=== PATIENT | female | born 1960 | race Caucasian/White ===

== ENCOUNTER 2019-12-24 10:01 | Outpatient (REF) | payer BC, SELFPAY ==
[2019-12-24 12:02] LABS: MANUAL DIFF FLAG NO
[2019-12-24 12:10] LABS: Basophils Percent Auto 0.2 % (0-2); Eosinophils Absolute Auto 0.2 X10*3/uL (0.0-0.4); Eosinophils Percent Auto 3.7 % (0-4); Hematocrit 43.1 % (37-47); Hemoglobin 14.2 g/dl (12.0-16.0); Imm Gran Abs Auto 0.02 X10*3/uL (0.00-0.03); Imm Gran Pct Auto 0.4 % (0.0-0.4); Lymphocytes Absolute Auto 1.7 X10*3/uL (1.2-4.9); Lymphocytes Percent Auto 33.5 % (20-40); Mean Corpuscular HGB Conc 32.9 g/dl (31.0-35.0); Mean Corpuscular Hemoglobin 32.9 pg (27.0-33.0); Mean Corpuscular Volume 99.8 fL (80-98); Mean Platelet Volume 10.4 fL (9.4-12.3); Monocytes Absolute Auto 0.6 X10*3/uL (0.1-1.2); Monocytes Percent Auto 10.6 % (2-11); Neutrophils Absolute Auto 2.7 X10*3/uL (2.0-8.3); Neutrophils Percent Auto 51.6 % (45-73); Platelet Count 190 X10*3/uL (160-400); Red Blood Count 4.32 X10*6/uL (4.20-5.50); White Blood Count 5.2 X10*3/uL (4.8-10.8)
[2019-12-24 13:08] LABS: Erythrocyte Sedimentation Rate 10 MM/HR (0-20)
[2019-12-24 13:42] LABS: C Reactive Protein 0.67 mg/dL (< or = 0.50)
== END 2019-12-24 10:02 | disposition home or self-care (01) ==
LOC: HO.LAB 10:01
PROVIDERS: PCP Family Medicine; Visit Provider Student in an Organized Health Care Education/Training Program
DX: L40.50 Arthropathic psoriasis, unspecified (principal); Z79.899 Other long term (current) drug therapy
CPT/HCPCS: 36415; 85025; 85652; 86140

== ENCOUNTER → 2020-01-26 08:02 | Outpatient (BNVA) | payer BC, SELFPAY | PROVIDERS: PCP Family Medicine; Referring Provider Family Medicine; Visit Provider Student in an Organized Health Care Education/Training Program | DX: Z76.89 Persons encountering health services in other specified circumstances (principal) ==

== ENCOUNTER 2020-03-19 10:26 | Outpatient (REF) | payer BC, SELFPAY ==
[2020-03-19 10:52] LABS: MANUAL DIFF FLAG NO
[2020-03-19 10:54] LABS: Basophils Percent Auto 0.2 % (0-2); Eosinophils Absolute Auto 0.3 X10*3/uL (0.0-0.4); Eosinophils Percent Auto 5.3 % (0-4); Hemoglobin 14.4 g/dl (12.0-16.0); Imm Gran Abs Auto 0.01 X10*3/uL (0.00-0.03); Imm Gran Pct Auto 0.2 % (0.0-0.4); Lymphocytes Absolute Auto 1.8 X10*3/uL (1.2-4.9); Mean Corpuscular HGB Conc 32.7 g/dl (31.0-35.0); Mean Corpuscular Hemoglobin 33.3 pg (27.0-33.0); Mean Corpuscular Volume 101.9 fL (80-98); Mean Platelet Volume 9.5 fL (9.4-12.3); Monocytes Absolute Auto 0.4 X10*3/uL (0.1-1.2); Neutrophils Absolute Auto 2.4 X10*3/uL (2.0-8.3); Neutrophils Percent Auto 49.3 % (45-73); Platelet Count 190 X10*3/uL (160-400); Red Blood Count 4.32 X10*6/uL (4.20-5.50); Red Cell Distribution Width 13.5 % (11.0-16.0); White Blood Count 4.9 X10*3/uL (4.8-10.8)
[2020-03-19 11:21] LABS: Alanine Aminotransferase 42 U/L (0-31); Albumin Level 4.1 g/dL (3.5-5.0); Alkaline Phosphatase 73 U/L (39-117); Anion Gap 10 (12-20); Aspartate Amino Transferase 32 U/L (5-31); Bilirubin Total 0.5 mg/dL (0.0-1.0); Blood Urea Nitrogen 10 mg/dL (9-16); Calcium 8.3 mg/dL (8.4-10.2); Carbon Dioxide 28 mmol/L (22-29); Chloride 107 mmol/L (96-108); Estimated Glomerular Filt Rate > 60; Glucose Random 125 mg/dL (60-115); Sodium 141 mmol/L (135-145); Total Protein 7.1 g/dL (6.5-8.0)
[2020-03-19 11:33] LABS: Erythrocyte Sedimentation Rate 7 MM/HR (0-20)
== END 2020-03-19 10:27 | disposition home or self-care (01) ==
LOC: HO.LAB 10:26
PROVIDERS: PCP Family Medicine; Visit Provider Student in an Organized Health Care Education/Training Program
DX: L40.50 Arthropathic psoriasis, unspecified (principal)
CPT/HCPCS: 36415; 80053; 85025; 85652; 86140

== ENCOUNTER 2020-04-26 07:46 | Outpatient (REF) | payer BC, SELFPAY ==
[2020-04-26 08:51] LABS: MANUAL DIFF FLAG NO
[2020-04-26 09:03] LABS: Basophils Percent Auto 0.2 % (0-2); Eosinophils Absolute Auto 0.2 X10*3/uL (0.0-0.4); Eosinophils Percent Auto 3.8 % (0-4); Hematocrit 44.3 % (37-47); Hemoglobin 14.6 g/dl (12.0-16.0); Imm Gran Abs Auto 0.01 X10*3/uL (0.00-0.03); Imm Gran Pct Auto 0.2 % (0.0-0.4); Lymphocytes Absolute Auto 1.5 X10*3/uL (1.2-4.9); Mean Corpuscular Hemoglobin 32.5 pg (27.0-33.0); Mean Corpuscular Volume 98.7 fL (80-98); Mean Platelet Volume 10.1 fL (9.4-12.3); Monocytes Absolute Auto 0.4 X10*3/uL (0.1-1.2); Monocytes Percent Auto 7.8 % (2-11); Neutrophils Absolute Auto 2.8 X10*3/uL (2.0-8.3); Platelet Count 176 X10*3/uL (160-400); Red Blood Count 4.49 X10*6/uL (4.20-5.50)
[2020-04-26 09:25] LABS: Alanine Aminotransferase 25 U/L (0-31); Alkaline Phosphatase 78 U/L (39-117); Anion Gap 10 (12-20); Aspartate Amino Transferase 22 U/L (5-31); Bilirubin Total 0.5 mg/dL (0.0-1.0); Blood Urea Nitrogen 9 mg/dL (9-16); C Reactive Protein 0.77 mg/dL (< or = 0.50); Calcium 8.6 mg/dL (8.4-10.2); Carbon Dioxide 29 mmol/L (22-29); Chloride 106 mmol/L (96-108); Estimated Glomerular Filt Rate > 60; Glucose Random 125 mg/dL (60-115); Potassium 3.6 mmol/L (3.3-5.1); Sodium 141 mmol/L (135-145); Total Protein 7.1 g/dL (6.5-8.0)
[2020-04-26 09:54] LABS: Erythrocyte Sedimentation Rate 7 MM/HR (0-20)
== END 2020-04-26 07:47 | disposition home or self-care (01) ==
LOC: HO.LAB 07:46
PROVIDERS: PCP Family Medicine; Visit Provider Student in an Organized Health Care Education/Training Program
DX: L40.50 Arthropathic psoriasis, unspecified (principal); Z79.899 Other long term (current) drug therapy
CPT/HCPCS: 36415; 80053; 85025; 85652; 86140

== ENCOUNTER 2020-08-18 12:37 | Outpatient (REF) | payer OTHER, SELFPAY ==
[2020-08-18 13:40] LABS: MANUAL DIFF FLAG NO
[2020-08-18 13:47] LABS: Basophils Percent Auto 0.2 % (0-2); Eosinophils Absolute Auto 0.2 X10*3/uL (0.0-0.4); Eosinophils Percent Auto 2.6 % (0-4); Hematocrit 44.5 % (37-47); Hemoglobin 14.7 g/dl (12.0-16.0); Imm Gran Abs Auto 0.02 X10*3/uL (0.00-0.03); Imm Gran Pct Auto 0.3 % (0.0-0.4); Lymphocytes Absolute Auto 1.5 X10*3/uL (1.2-4.9); Lymphocytes Percent Auto 25.3 % (20-40); Mean Corpuscular Hemoglobin 31.7 pg (27.0-33.0); Mean Corpuscular Volume 96.1 fL (80-98); Mean Platelet Volume 10.4 fL (9.4-12.3); Monocytes Absolute Auto 0.5 X10*3/uL (0.1-1.2); Monocytes Percent Auto 8.6 % (2-11); Neutrophils Absolute Auto 3.6 X10*3/uL (2.0-8.3); Platelet Count 172 X10*3/uL (160-400); Red Blood Count 4.63 X10*6/uL (4.20-5.50); Red Cell Distribution Width 13.9 % (11.0-16.0); White Blood Count 5.7 X10*3/uL (4.8-10.8)
[2020-08-18 14:17] LABS: Alanine Aminotransferase 19 U/L (0-31); Alkaline Phosphatase 76 U/L (39-117); Anion Gap 10 (12-20); Aspartate Amino Transferase 24 U/L (5-31); Bilirubin Total 0.5 mg/dL (0.0-1.0); Blood Urea Nitrogen 12 mg/dL (9-16); C Reactive Protein 0.37 mg/dL (< or = 0.50); Calcium 8.9 mg/dL (8.4-10.2); Carbon Dioxide 26 mmol/L (22-29); Chloride 109 mmol/L (96-108); Estimated Glomerular Filt Rate > 60; Glucose Random 92 mg/dL (60-115); Potassium 4.1 mmol/L (3.3-5.1); Sodium 141 mmol/L (135-145); Total Protein 7.3 g/dL (6.5-8.0)
[2020-08-18 14:59] LABS: Erythrocyte Sedimentation Rate 8 MM/HR (0-20)
== END 2020-08-18 12:38 | disposition home or self-care (01) ==
LOC: HO.LAB 12:37
PROVIDERS: PCP Family Medicine; Visit Provider Student in an Organized Health Care Education/Training Program
DX: L40.50 Arthropathic psoriasis, unspecified (principal)
CPT/HCPCS: 36415; 80053; 85025; 85652; 86140

== ENCOUNTER 2020-11-22 13:21 | Outpatient (REF) | payer OTHER, SELFPAY ==
[2020-11-22 14:30] LABS: MANUAL DIFF FLAG NO
[2020-11-22 15:18] LABS: Basophils Percent Auto 0.3 % (0-2); Eosinophils Absolute Auto 0.2 X10*3/uL (0.0-0.4); Eosinophils Percent Auto 2.4 % (0-4); Hematocrit 45.3 % (37-47); Hemoglobin 15.3 g/dl (12.0-16.0); Imm Gran Abs Auto 0.02 X10*3/uL (0.00-0.03); Imm Gran Pct Auto 0.3 % (0.0-0.4); Lymphocytes Absolute Auto 1.7 X10*3/uL (1.2-4.9); Lymphocytes Percent Auto 27.2 % (20-40); Mean Corpuscular HGB Conc 33.8 g/dl (31.0-35.0); Mean Corpuscular Hemoglobin 32.7 pg (27.0-33.0); Mean Corpuscular Volume 96.8 fL (80-98); Mean Platelet Volume 10.7 fL (9.4-12.3); Monocytes Absolute Auto 0.6 X10*3/uL (0.1-1.2); Monocytes Percent Auto 8.8 % (2-11); Neutrophils Absolute Auto 3.8 X10*3/uL (2.0-8.3); Platelet Count 192 X10*3/uL (160-400); Red Blood Count 4.68 X10*6/uL (4.20-5.50); Red Cell Distribution Width 13.7 % (11.0-16.0); White Blood Count 6.2 X10*3/uL (4.8-10.8)
[2020-11-22 15:45] LABS: Alanine Aminotransferase 14 U/L (0-31); Albumin Level 4.2 g/dL (3.5-5.0); Alkaline Phosphatase 82 U/L (39-117); Anion Gap 12 (12-20); Aspartate Amino Transferase 20 U/L (5-31); Bilirubin Total 0.7 mg/dL (0.0-1.0); Blood Urea Nitrogen 10 mg/dL (9-16); C Reactive Protein 0.34 mg/dL (< or = 0.50); Carbon Dioxide 25 mmol/L (22-29); Chloride 109 mmol/L (96-108); Estimated Glomerular Filt Rate > 60; Glucose Random 101 mg/dL (60-115); Potassium 3.7 mmol/L (3.3-5.1); Sodium 142 mmol/L (135-145); Total Protein 7.6 g/dL (6.5-8.0)
[2020-11-22 16:14] LABS: Erythrocyte Sedimentation Rate 7 MM/HR (0-20)
== END 2020-11-22 13:22 | disposition home or self-care (01) ==
LOC: HO.LAB 13:21
PROVIDERS: PCP Family Medicine; Visit Provider Nurse Practitioner Family
DX: L40.50 Arthropathic psoriasis, unspecified (principal); Z79.899 Other long term (current) drug therapy
CPT/HCPCS: 36415; 80053; 85025; 85652; 86140

== ENCOUNTER → 2021-04-27 14:53 | Outpatient (BNVA) | payer OTHER, SELFPAY | PROVIDERS: PCP Family Medicine; Visit Provider Psychiatry & Neurology Neurology ==

== ENCOUNTER 2021-05-16 14:05 | Outpatient (REF) | payer OTHER, SELFPAY ==
[2021-05-16 14:24] LABS: MANUAL DIFF FLAG NO
[2021-05-16 15:00] LABS: Basophils Percent Auto 0.3 % (0-2); Eosinophils Absolute Auto 0.2 X10*3/uL (0.0-0.4); Eosinophils Percent Auto 2.7 % (0-4); Hematocrit 43.5 % (37.0-47.0); Hemoglobin 14.4 g/dl (12.0-16.0); Imm Gran Abs Auto 0.02 X10*3/uL (0.00-0.03); Imm Gran Pct Auto 0.3 % (0.0-0.4); Lymphocytes Absolute Auto 2.2 X10*3/uL (1.2-4.9); Lymphocytes Percent Auto 32.5 % (20-40); Mean Corpuscular HGB Conc 33.1 g/dl (31.0-35.0); Mean Corpuscular Volume 96.7 fL (80.0-98.0); Mean Platelet Volume 10.1 fL (9.4-12.3); Monocytes Absolute Auto 0.6 X10*3/uL (0.1-1.2); Monocytes Percent Auto 8.2 % (2-11); Neutrophils Absolute Auto 3.7 x10*3/uL (2.0-8.3); Platelet Count 172 X10*3/uL (160-400); Red Cell Distribution Width 13.2 % (11.0-16.0); White Blood Count 6.7 X10*3/uL (4.8-10.8)
[2021-05-16 15:19] LABS: Alanine Aminotransferase 17 U/L (0-31); Albumin Level 3.8 g/dL (3.5-5.0); Alkaline Phosphatase 78 U/L (39-117); Anion Gap 10 (12-20); Aspartate Amino Transferase 17 U/L (5-31); Bilirubin Total 0.4 mg/dL (0.0-1.0); Blood Urea Nitrogen 16 mg/dL (9-16); C Reactive Protein 0.23 mg/dL (< or = 0.50); Calcium 8.7 mg/dL (8.4-10.2); Carbon Dioxide 28 mmol/L (22-29); Chloride 106 mmol/L (96-108); Estimated Glomerular Filt Rate > 60; Glucose Random 87 mg/dL (60-115); Potassium 3.8 mmol/L (3.3-5.1); Sodium 140 mmol/L (135-145)
[2021-05-16 15:42] LABS: Erythrocyte Sedimentation Rate 9 MM/HR (0-20)
== END 2021-05-16 14:06 | disposition home or self-care (01) ==
LOC: HO.LAB 14:05
PROVIDERS: PCP Family Medicine; Visit Provider Nurse Practitioner Family
DX: L40.50 Arthropathic psoriasis, unspecified (principal)
CPT/HCPCS: 36415; 80053; 85025; 85652; 86140

== ENCOUNTER 2021-05-22 09:25 | Outpatient (REF) | payer OTHER, SELFPAY ==
--- NOTE | ~2021-05-22 | MR_ITS ---
EXAMINATION: MR BRAIN WITHOUT AND WITH CONTRAST CLINICAL INFORMATION: Headache. Facial pain. COMPARISON: None available. TECHNIQUE: Multiplanar, multisequence MRI of the brain was obtained using a skull base protocol without and following the administration of 10 mL of Gadavist intravenous contrast. FINDINGS: No focal restricted diffusion is demonstrated to suggest acute or subacute cerebral ischemia. Scattered periventricular and deep white matter T2 FLAIR hyperintensities consistent with mild underlying microangiopathy. Proportional prominence of the ventricles and sulcal spaces without evidence of obstructive hydrocephalus. No abnormal mass effect. No midline shift. Normal appearance of the pituitary gland. Normal positioning of the cerebellar tonsils. No mass of the cerebellopontine angles. Normal appearance of the cranial nerve V, VII, and VIII nerve roots. No edema or vascular loops near the nerve root entry sites. Normal appearance of the internal auditory canals without enhancing mass lesions. No abnormal enhancement along the course of the facial nerves bilaterally. Normal appearance of the labyrinthine structures without loss of T2 signal or abnormal enhancement. Normal arterial and venous vascular flow voids are present. No abnormal intracranial contrast enhancement. Normal, homogeneous marrow signal. There is a 1.3 cm nonenhancing cyst within the right palatine tonsils. Moderate mucosal thickening of the paranasal sinuses. Mucous retention cyst within the left maxillary sinus. No signal abnormalities within the mastoids. Upper cervical chain lymph nodes appear mildly increased in number bilaterally but remain subcentimeter in size. MR/MR head/brain wo/w con IMPRESSION: 1. No acute intracranial abnormalities. No abnormal intracranial enhancement. 2. Mild underlying microangiopathy and generalized cerebral volume loss. 3. Nonspecific mildly prominent upper cervical chain lymph nodes, likely reactive in nature.
== END 2021-05-22 09:26 | disposition home or self-care (01) ==
LOC: HO.MRI 09:25
PROVIDERS: PCP Family Medicine; Visit Provider Psychiatry & Neurology Neurology
DX: R51.9 Headache, unspecified (principal); D18.01 Hemangioma of skin and subcutaneous tissue
CPT/HCPCS: 70553; A9585

== ENCOUNTER → 2021-12-04 09:01 | Outpatient (REF) | payer OTHER, SELFPAY | LOC: HO.SL 09:01 | PROVIDERS: PCP Family Medicine; Visit Provider Nurse Practitioner Family | DX: G47.33 Obstructive sleep apnea (adult) (pediatric) (principal); R40.0 Somnolence; R06.83 Snoring | CPT/HCPCS: 95806 ==

== ENCOUNTER → 2022-02-09 15:01 | Outpatient (BNVA) | payer OTHER, SELFPAY | PROVIDERS: PCP Family Medicine; Visit Provider Nurse Practitioner Family | DX: G47.9 Sleep disorder, unspecified (principal); R06.83 Snoring; R40.0 Somnolence ==

== ENCOUNTER → 2022-08-13 15:26 | Outpatient (BNVA) | payer OTHER, SELFPAY | PROVIDERS: PCP Family Medicine; Visit Provider Nurse Practitioner Family | DX: G47.9 Sleep disorder, unspecified (principal); R06.83 Snoring; R40.0 Somnolence ==

== ENCOUNTER 2023-12-11 08:57 | Outpatient (AMB) | payer MEDICARE, SELFPAY ==
--- NOTE | 2023-12-11 09:00 | A.OFFVIS_ITS ---
Vital Signs 12/11/23 09:04 Height 5 ft 6 in Weight 219 lb 2 oz BMI 35.4 BP 110/82 Blood Pressure Location Lt brachial Position Sitting Pulse 78 Pulse Source Pulse Oximeter Pulse Oximetry (%) 97 Oxygen Delivery Method Room Air Intake Visit Reasons: SHAY Outside Laborer Required: No Accompanied by: Spouse Allergies Penicillins Allergy (Mild, Verified 12/11/23 09:01) RASH HPI Comments Details: 63 y/o female patient presents for follow up of SHAY on CPAP. she stopped using CPAP due to facial cellulitis - Oct 2023 - she was treated with antibiotics for 10 days but later developed COVID and malik snot started using CPAP again she sleeps ok . HST in 2021 showed mild degree of sleep apnea- AHI 15 O2 ricardo 83% PFSH Medical History Reddish hemangioma of skin Hypothyroidism Snoring Sleep disorder Right facial pain Psoriasis Psoriatic arthritis Surgical History No history of previous surgery Family History Father No problems noted. Father Heart attack Mother Breast cancer Family/Other COPD (chronic obstructive pulmonary disease) H/O heart bypass surgery Social History Alcohol intake: current Alcohol intake frequency: holidays/special occasions only Patient Tobacco Use Status: Former Tobacco user Tobacco use type: Cigarette Cigarettes Per Day: 10 Years Smoked: 20 e-Cigarette/Vaping Use: Never Used Physical Exam Vital Signs: Last Vital Signs Pulse 78 12/11/23 09:04 BP 110/82 12/11/23 09:04 Pulse Ox 97 12/11/23 09:04 Oxygen Delivery Method Room Air 12/11/23 09:04 BMI result Body Mass Index 35.4 Const General: cooperative, healthy appearing, comfortable and no acute distress Nutritional Appearance: overweight Orientation/consciousness: patient oriented x3 HEENT Other: right eye externally rotated Right facial hemangioma mallampatti grade 4 Head: Yes normocephalic Eyes Pupils: Equal, round and reactive pupils present Neuro General: patient oriented x3, gait normal, tone normal, moves all extremities, no focal motor deficits and CN's II-XI intact bilaterally Cranial nerves: Yes CN's II-XII intact bilaterally, Yes Equal, round and reactive pupils present and Yes Normal facial strength present Cognition (Neuro): normal cognition Motor exam (neuro): 5/5 motor strength present throughout and Normal motor muscle tone present throughout Coordination: [id number] test normal Assessment & Plan Assessment & Plan (1) SHAY (obstructive sleep apnea): Comment: A mild degree of sleep apnea. The AHI was 15/hr and the oxygen ricardo was 82%. Code(s): G47.33 - Obstructive sleep apnea (adult) (pediatric) Category: Medical Plan Continue to use APAP [id number] as patient experiences good clinical effect. [facility] Stressed compliance, use CPAP nightly and more than 4 hours. Clean mask and tube routinely. Will f/u of compliance and therapy response. Wt reduction advised. She is not interested in mandibular device Coding Level of Care Code Est Pt Level 4 (97104) Diagnoses SHAY (obstructive sleep apnea) G47.33
[2023-12-11 09:04] VITALS: BP 110/82; PULSE 78; O2SAT 97; BMI 35.4
== END 2023-12-11 09:18 | disposition home or self-care (01) ==
PROVIDERS: PCP Family Medicine; Visit Provider Psychiatry & Neurology Neurology
DX: G47.33 Obstructive sleep apnea (adult) (pediatric) (principal)
CPT/HCPCS: 99214

== ENCOUNTER → 2023-12-11 08:57 | Outpatient (BNVA) | payer MEDICARE, SELFPAY | PROVIDERS: PCP Family Medicine; Visit Provider Psychiatry & Neurology Neurology | DX: G47.33 Obstructive sleep apnea (adult) (pediatric) (principal) | CPT/HCPCS: 99212 ==

== ENCOUNTER 2024-03-12 08:52 | Outpatient (AMB) | payer MEDICARE, SELFPAY ==
--- NOTE | 2024-03-12 08:55 | A.OFFVIS_ITS ---
Vital Signs 03/12/24 08:56 Height 5 ft 6 in Weight 228 lb BMI 36.8 BP 124/88 Blood Pressure Location Rt brachial Position Sitting Intake Visit Reasons: 3m follow up Trigeminal neuralgia Intake Note: Patient presents for 3 month follow up neuralgia Allergies Penicillins Allergy (Mild, Verified 03/12/24 08:57) RASH HPI Comments Details: 63 y/o female patient presents for follow up of SHAY on CPAP. she stopped using CPAP due to facial cellulitis - Oct 2023 - she was treated with antibiotics for 10 days but later developed COVID and started using in Jan 2024 but had some trouble with her equipment - now has a loaner from [facility] she sleeps ok . HST in 2021 showed mild degree of sleep apnea- AHI 15 O2 ricardo 83% compliance form 12-9 -24-1-- 90%- had cataract surgery 2 days ago and did not use for past 2 days AHI 3 On 5-15 PFSH Medical History Cataract Reddish hemangioma of skin Hypothyroidism Snoring Sleep disorder Right facial pain Psoriasis Psoriatic arthritis Surgical History No history of previous surgery Family History Father No problems noted. Father Heart attack Mother Breast cancer Family/Other COPD (chronic obstructive pulmonary disease) H/O heart bypass surgery Social History Alcohol intake: current Alcohol intake frequency: holidays/special occasions only Patient Tobacco Use Status: Former Tobacco user Tobacco use type: Cigarette Cigarettes Per Day: 10 Years Smoked: 20 e-Cigarette/Vaping Use: Never Used Physical Exam Vital Signs: Last Vital Signs BP 124/88 03/12/24 08:56 BMI result Body Mass Index 36.8 Const General: cooperative, healthy appearing, comfortable and no acute distress Nutritional Appearance: overweight Orientation/consciousness: patient oriented x3 HEENT Other: right eye externally rotated Right facial hemangioma mallampatti grade 4 Head: Yes normocephalic Eyes Pupils: Equal, round and reactive pupils present Neuro General: patient oriented x3, gait normal, tone normal, moves all extremities, no focal motor deficits and CN's II-XI intact bilaterally Cranial nerves: Yes CN's II-XII intact bilaterally, Yes Equal, round and re active pupils present and Yes Normal facial strength present Cognition (Neuro): normal cognition Motor exam (neuro): 5/5 motor strength present throughout and Normal motor muscle tone present throughout Coordination: [id number] test normal Assessment & Plan Assessment & Plan (1) SHAY (obstructive sleep apnea): Comment: A mild degree of sleep apnea. The AHI was 15/hr and the oxygen ricardo was 82%. Code(s): G47.33 - Obstructive sleep apnea (adult) (pediatric) Category: Medical Plan Continue to use APAP [id number] as patient experiences good clinical effect. Stressed compliance, use CPAP nightly and more than 4 hours. Clean mask and tube routinely. Will f/u of compliance and therapy response. Wt reduction advised. She is not interested in mandibular device Coding Level of Care Code Est Pt Level 4 (25252) Diagnoses SHAY (obstructive sleep apnea) G47.33
[2024-03-12 08:56] VITALS: BP 124/88; BMI 36.8
== END 2024-03-12 09:27 | disposition home or self-care (01) ==
PROVIDERS: PCP Family Medicine; Visit Provider Psychiatry & Neurology Neurology
DX: G47.33 Obstructive sleep apnea (adult) (pediatric) (principal)
CPT/HCPCS: 99214

== ENCOUNTER → 2024-03-12 08:52 | Outpatient (BNVA) | payer MEDICARE, SELFPAY | PROVIDERS: PCP Family Medicine; Visit Provider Psychiatry & Neurology Neurology | DX: G47.33 Obstructive sleep apnea (adult) (pediatric) (principal) | CPT/HCPCS: 99212 ==

== ENCOUNTER 2024-06-10 08:55 | Outpatient (AMB) | payer MEDICARE, SELFPAY ==
--- OUTSIDE RECORDS SUMMARY | 2024-06-10 09:34 | XMS_ITS | Clinical Summary ---
Author Organization [facility] Address [address] [place] [address] Care Team Providers Care Core Winder Name Role Phone Jaylen Bar MD Primary Care Provider [phone] Medications No known medications Active Problems No known active problems Social History Tobacco Use Types Packs/Day Years Used Date Smoking Tobacco: Former Cigarettes Smokeless Tobacco: Never Tobacco Cessation:Counseling Given: Not Answered Alcohol Use Standard Drinks/Week Comments Yes 0 (1 standard drink = 0.6 oz pur e alcohol) OCCASIONAL Sex and Gender Information Value Date Recorded Sex Assigned at Female 05/16/2023 5:17 PM EDT Gender Identity Not on file Sexual Orientation Not on file Job Start Date Occupation Industry Not on file Not on file Not on file Last Filed Vital Signs Vital Sign Reading Time Taken Comments Blood Pressure 115/68 07/10/2023 9:47 AM EDT Pulse 72 07/10/2023 9:47 AM EDT Temperature 36.2 ??C (97.2 ??F) 07/10/2023 9:47 AM ED T Respiratory Rate - - Oxygen Saturation 99% 07/10/2023 9:47 AM EDT Inhaled Oxygen Concentration - - Weight 94.8 kg (209 lb) 07/10/2023 9:47 AM EDT Height - - Body Mass Index - - Plan of Treatment Health Maintenance Due Date Last Done Comments Hepatitis C Screening 1958 Depression Screening 1970 Preventative Health Evaluation 1976 DTap / Tdap / Td (1 - Tdap) 1977 Cervical Cancer Screening (Pap Smear) 10/13/1979 Colon Cancer Screening (Colonoscopy) 10/13/2003 Breast Cancer Screening (Mammogram) 2008 Shingrix-Zoster Vaccine (1 of 2) 2008 Fall Risk Assessment 10/13/2023 Osteoporosis Screening (DEXA Scan) 10/13/2023 Pneumococcal Vaccine (1 of 1 - PCV) 10/13/2023 COVID-19 Vaccine (5 - season) 2023 02/04/2023, 12/22/2020, 06/24/2020, Additional history exists Influenza Vaccine (#1) 2023 3, 12/11/2021, 12/06/2020, Additional history exists RSV Adult > 60+ Yrs or (1 - 1-dose 75+ series) 2033 Hepatitis B Vaccines Aged Out No long er eligible based on patient's age to complete this topic Pneumococcal Vaccine Aged Out No long er eligible based on patient's age to complete this topic RSV Ped < 20 months Aged Out No longe r eligible based on patient's age to complete this topic Insurance Payer Benefit Plan / Group Subscriber ID Effective Dates Phone Address [facility] [id number] 2023-Presen t [address] [place] [address] [facility] – [place] Care Teams Core Winder Relationship Specialty Start Date End Date Jaylen Bar MD [address] [place] [address] PCP - General Family Medicine 05/16/23
--- NOTE | 2024-06-10 09:39 | MHC.OFFVIS ---
Vital Signs 06/10/24 09:40 Height 5 ft 6 in Weight 227 lb BMI 36.6 Pulse 66 Pulse Source Pulse Oximeter Pulse Oximetry (%) 96 Oxygen Delivery Method Room Air Intake Visit Reasons: 3 mnts f/u with Shankar per MD Intake Note: Patient presents follow up SHAY. Compliance in chart. Allergies Penicillins Allergy (Mild, Verified 06/10/24 09:42) RASH HPI Comments Details: 63 y/o female presents for follow up of SHAY on CPAP. Her Guerrero helps with history today. HST in 2021 showed mild degree of sleep apnea- AHI 15 O2 ricardo 83% On Oct 2023 she stopped using CPAP due to facial cellulitis, she was treated with antibiotics for 10 days but later developed COVID and started using her machine in Jan 2024. She had some trouble with her equipment, and has a loaner from [facility] she sleeps ok. She has Levlatoid Capillitis, small purpuric spots itchy, yet benign skin condition with Psoriasis, takes Bimzelx 320mg Q4W and Pentoxifylline ER 400mg PO TID, she is followed by the wound clinic for debridement of ulcers in her feet as needed. Feb 2024 had cataract surgery, bilaterally, procedure went well at Dr. Dawn's office in [facility]. She denies headaches. She denied RLS or RBD behavior symptoms. She denies cognitive decline. She used to have a julio machine G33 and it started to discharge chunks of material with battery acid tasting fluid. Now she really likes her new loaner machine gumi Airsense 10. Her diet and mood are stable, she is motivated to lose weight. She likes her machine and uses it daily, with the exception of sick days and recently had covid. She washes her mask and changes her filters, and hoses as needed. [facility] [place] Medical History Cataract Reddish hemangioma of skin Hypothyroidism Snoring Sleep disorder Right facial pain Psoriasis Psoriatic arthritis Surgical History History of cataract surgery No history of previous surgery Family History Father No problems noted. Father Heart attack Mother Breast cancer Family/Other COPD (chronic obstructive pulmonary disease) H/O heart bypass surgery Social History Alcohol intake: current Alcohol intake frequency: holidays/special occasions only Patient Tobacco Use Status: Former Tobacco user Tobacco use type: Cigarette Cigarettes Per Day: 10 Years Smoked: 20 e-Cigarette/Vaping Use: Never Used Physical Exam Vital Signs: Last Vital Signs Pulse 66 06/10/24 09:40 Pulse Ox 96 06/10/24 09:40 Oxygen Delivery Method Room Air 06/10/24 09:40 BMI result Body Mass Index 36.6 Const General: cooperative, healthy appearing, comfortable and no acute distress Nutritional Appearance: overweight Orientation/consciousness: patient oriented x3 HEENT Other: right eye externally rotated Right facial hemangioma mallampatti grade 4 Head: Yes normocephalic Eyes Pupils: Equal, round and reactive pupils present Neuro General: patient oriented x3, gait normal, tone normal, moves all extremities, no focal motor deficits and CN's II-XI intact bilaterally Cranial nerves: Yes CN's II-XII intact bilaterally, Yes Equal, round and reactive pupils present and Yes Normal facial strength present Cognition (Neuro): normal cognition Motor exam (neuro): 5/5 motor strength present throughout and Normal motor muscle tone present throughout Coordination: [id number] test normal Results Reviewed Results Reviewed: SHAY Compliance Data 02/2024 - 05/2024 Total Usage is 79/90 and 88% Avg >4 hrs 6hr 35min APAP [id number] Press 9.5- 13.5cmH20 Leaks 2.6-29.2cmH20 and AHI are 3.4cmH20 Assessment & Plan Assessment & Plan (1) SHAY (obstructive sleep apnea): Comment: A mild degree of sleep apnea. The AHI was 15/hr and the oxygen ricardo was 82%. Code(s): G47.33 - Obstructive sleep apnea (adult) (pediatric) Category: Medical (2) Daytime sleepiness: Code(s): R40.0 - Somnolence Category: Medical (3) Psoriasis: Code(s): L40.9 - Psoriasis, unspecified Category: Medical Plan Continue to use APAP [id number] as patient experiences good clinical effect. Stressed compliance, use CPAP nightly and more than 4 hours. Will f/u with C re: loaner machine, if she needs a new RX for a new supply order we will send the new order for her. Wt reduction advised, continue walking as tolerable. Patient Instructions: Sleep Hygiene provided: set a scheduled bedtime and wake time to help regulate the circadian rhythm and balance the release of pituitary hormones. Sleep in a dark room, temperatures below 68 degrees, and no devices n bed. Limit caffeinated products 6 hours prior to bed, and limit fluids 2-4 hours prior to bed. Gentle night yoga, diffusing essential oils, and playing soft music can be relaxing. Coding Level of Care Code Est Pt Level 4 (16616) Diagnoses SHAY (obstructive sleep apnea) G47.33 Daytime sleepiness R40.0 Psoriasis L40.9 Time Spent (min) 20
[2024-06-10 09:40] VITALS: PULSE 66; O2SAT 96; BMI 36.6
== END 2024-06-10 10:19 | disposition home or self-care (01) ==
LOC: HO.HSMS 08:55
PROVIDERS: PCP Family Medicine; Visit Provider Physician Assistant Medical
DX: G47.33 Obstructive sleep apnea (adult) (pediatric) (principal); R40.0 Somnolence; L40.9 Psoriasis, unspecified
CPT/HCPCS: 99214

== ENCOUNTER → 2024-06-10 08:55 | Outpatient (BNVA) | payer MEDICARE, SELFPAY | PROVIDERS: PCP Family Medicine; Visit Provider Physician Assistant Medical | DX: G47.33 Obstructive sleep apnea (adult) (pediatric) (principal); R40.0 Somnolence; L40.9 Psoriasis, unspecified; Z99.89 Dependence on other enabling machines and devices | CPT/HCPCS: 99212 ==

== ENCOUNTER → 2024-10-12 09:59 | Outpatient (REF) | payer MEDICARE, SELFPAY ==
--- OUTSIDE RECORDS SUMMARY | 2024-10-12 10:58 | XMS_ITS | Patient Health Record ---
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 Name Role Phone Jaylen Bar Primary Care Provider Nohemi Casey Unavailable [phone] Marjan Barrett Unavailable [phone] Maurilio Richards Unavailable [phone] Allergies Allergen (clinical drug ingredient) Drug/Non Drug Allergy documented on EMR Reaction Allergy Type Onset Date Status Penicillin Unknown Drug Allergy Active Reason For Referral No Information Medications Medication SIG (Take, Route, Frequency, Duration) Notes Start Date End Date Status Aspirin Adult Low Dose 81 MG 1 tablet Or ally Once a day; Duration: 30 day(s) Active Pentoxifylline - as directed A ctive Cosentyx 150 MG/ML 1 mL Subcutaneous; Duration: 30 day(s) Active Triamcinolone Acetonide 0.025 % 1 application Externally Once a day 10/09/2023 Active Fluocinonide 0.05 % 1 application Torch Shearer ally Twice a day 10/09/2023 Active Rosuvastatin Calcium 5 MG 1 tablet Orall y Once a day; Duration: 30 day(s) 10/09/2023 Active Desonide 0.05 % 1 application Torch Shearer ally Twice a day 10/09/2023 Active Problems Problem Type SNOMED Code ICD Code Onset Dates Problem Status W/U Status Risk Notes Problem Antiphospholipid syndrome (23037992) Antiphospholipid syndrome (D68.61) Active confirmed Problem Obesity due to excess calories (621171354) Other obesity due to excess calories (E66.09) Active confirmed Problem 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 Problem Chronic ulcer of right foot (disorder) (40485146430797114) Non-pressure chronic ulcer of other part of right foot with unspecified severity (L97.519) Active confirmed Problem Chronic ulcer of lower extremity (92212145) Non-pressure chronic ulcer of other part of right lower leg limited to breakdown of skin (L97.811) Active confirmed Problem Non-pressure chronic ulcer of other part of left lower leg with unspecified severity (L97.829) Active confirmed Problem Unspecified open wound of abdominal wall, right lower quadrant without penetration into peritoneal cavity, subsequent encounter (S31.103D) Active confirmed Problem Dehiscence of surgical wound (67057634) Disruption of external operation (surgical) wound, not elsewhere classified, subsequent encounter (T81.31XD) Active confirmed Problem Encounter for surgical aftercare following surgery on the skin and subcutaneous tissue (Z48.817) Active confirmed Problem Hyperlipidaemia (39438013) Hyperlipidemia, unspecified hyperlipidemia type (E78.5) Active confirmed Problem Anxiety (63270217) Anxiety (F41.9) Active confi rmed Problem Obesity (873360760) Obesity, unspecified classification, unspecified obesity type, unspecified whether serious comorbidity present (E66.9) Active confirmed Problem Aortic valve disorder (2693295) Aortic heart murmur (I35.8) Active confirmed Problem 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 Problem History of otitis media (538783553) H/O otitis media (Z86.69) Active confirmed Problem Rhonda's thyroiditis (41086173) Rhonda's thyroiditis (E06.3) Active confirmed Problem 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 Problem 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 Problem Psoriasis (7795503) Psoriasis (L40.9) Active co nfirmed Problem Cellulitis of left lower leg (98839176372336) Cellulitis of left lower leg (L03.116) Active confirmed Vital Signs Heart Rate 79 /min 06/15/2024 Temperature 97.5 degrees Fahrenheit 06/15/2024 Respiratory Rate 18 /min 06/15/2024 Oximetry 99 % 06/15/2024 Blood pressure diastolic 82 mm Hg 06/15/2024 Weight-kg 99.79 kg 06/15/2024 Height 66 in 06/15/2024 Blood pressure systolic 152 mm Hg 06/15/2024 Weight 220 lbs 06/15/2024 BMI 35.51 kg/m2 06/15/2024 Encounters Encounter Location Date Provider Diagnosis [facility] [address] [facility] [address] [place] [address] 11/11/2023 Marjan Barrett Disruption of external operation (surgical) wound, not elsewhere classified, subsequent encounter T81.31XD ; Livedo vasculitis L95.0 ; Psoriatic arthritis mutilans L40.52 ; Other obesity due to excess calories E66.09 ; Non-pressure chronic ulcer of other part of left lower leg with unspecified severity L97.829 ; Non-pressure chronic ulcer of other part of right foot with unspecified severity L97.519 ; Encounter for surgical aftercare following surgery on the skin and subcutaneous tissue Z48.817 ; Unspecified open wound of abdominal wall, right lower quadrant without penetration into peritoneal cavity, subsequent encounter S31.103D and Non-pressure chronic ulcer of other part of right lower leg limited to breakdown of skin L97.811 [facility] [address] [facility] [address] [place] [address] 12/09/2023 Nohemi Iyer Livedo vasculitis L95.0 ; Disruption of external operation (surgical) wound, not elsewhere classified, subsequent encounter T81.31XD ; Psoriatic arthritis mutilans L40.52 ; Other obesity due to excess calories E66.09 ; Non-pressure chronic ulcer of other part of left lower leg with unspecified severity L97.829 ; Non-pressure chronic ulcer of other part of right foot with unspecified severity L97.519 ; Encounter for surgical aftercare following surgery on the skin and subcutaneous tissue Z48.817 ; Unspecified open wound of abdominal wall, right lower quadrant without penetration into peritoneal cavity, subsequent encounter S31.103D ; Non-pressure chronic ulcer of other part of right lower leg limited to breakdown of skin L97.811 and Cellulitis of left lower leg L03.116 [facility] [address] [facility] [facility] [address] [place] [address] 12/16/2023 Nohemi Morgan Livedo vasculitis L95.0 ; Disruption of external operation (surgical) wound, not elsewhere classified, subsequent encounter T81.31XD ; Psoriatic arthritis mutilans L40.52 ; Other obesity due to excess calories E66.09 ; Non-pressure chronic ulcer of other part of left lower leg with unspecified severity L97.829 ; Non-pressure chronic ulcer of other part of right foot with unspecified severity L97.519 ; Encounter for surgical aftercare following surgery on the skin and subcutaneous tissue Z48.817 ; Unspecified open wound of abdominal wall, right lower quadrant without penetration into peritoneal cavity, subsequent encounter S31.103D ; Non-pressure chronic ulcer of other part of right lower leg limited to breakdown of skin L97.811 and Cellulitis of left lower leg L03.[address] [address] 12/23/2023 Nohemineela Smithett Livedo vasculitis L95.0 ; Disruption of external operation (surgical) wound, not elsewhere classified, subsequent encounter T81.31XD ; Psoriatic arthritis mutilans L40.52 ; Other obesity due to excess calories E66.09 ; Non-pressure chronic ulcer of other part of left lower leg with unspecified severity L97.829 ; Non-pressure chronic ulcer of other part of right foot with unspecified severity L97.519 ; Encounter for surgical aftercare following surgery on the skin and subcutaneous tissue Z48.817 ; Unspecified open wound of abdominal wall, right lower quadrant without penetration into peritoneal cavity, subsequent encounter S31.103D ; Non-pressure chronic ulcer of other part of right lower leg limited to breakdown of skin L97.811 and Cellulitis of left lower leg L03.116 [facility] [address] [address] 12/30/2023 Nohemi Iyer 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 ; Psoriasis L40.9 ; Psoriatic arthritis mutilans L40.52 ; Non-pressure chronic ulcer of other part of left lower leg with unspecified severity L97.829 ; Non-pressure chronic ulcer of other part of right foot with unspecified severity L97.519 ; Non-pressure chronic ulcer of other part of right lower leg limited to breakdown of skin L97.811 ; Disruption of external operation (surgical) wound, not elsewhere classified, subsequent encounter T81.31XD ; Encounter for surgical aftercare following surgery on the skin and subcutaneous tissue Z48.817 ; Unspecified open wound of abdominal wall, right lower quadrant without penetration into peritoneal cavity, subsequent encounter S31.103D and Cellulitis of left lower leg L03.116 [facility] [address] [facility] [facility] [address] [place] [address] 01/06/2024 Nohemi Iyer 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 ; Psoriasis L40.9 ; Psoriatic arthritis mutilans L40.52 ; Non-pressure chronic ulcer of other part of left lower leg with unspecified severity L97.829 ; Non-pressure chronic ulcer of other part of right foot with unspecified severity L97.519 ; Non-pressure chronic ulcer of other part of right lower leg limited to breakdown of skin L97.811 ; Disruption of external operation (surgical) wound, not elsewhere classified, subsequent encounter T81.31XD ; Encounter for surgical aftercare following surgery on the skin and subcutaneous tissue Z48.817 ; Unspecified open wound of abdominal wall, right lower quadrant without penetration into peritoneal cavity, subsequent encounter S31.103D and Cellulitis of left lower leg L03.116 [facility] [address] [address] 01/13/2024 Nohemi Iyer 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 ; Psoriasis L40.9 ; Psoriatic arthritis mutilans L40.52 ; Non-pressure chronic ulcer of other part of left lower leg with unspecified severity L97.829 ; Non-pressure chronic ulcer of other part of right foot with unspecified severity L97.519 ; Non-pressure chronic ulcer of other part of right lower leg limited to breakdown of skin L97.811 ; Disruption of external operation (surgical) wound, not elsewhere classified, subsequent encounter T81.31XD ; Encounter for surgical aftercare following surgery on the skin and subcutaneous tissue Z48.817 ; Unspecified open wound of abdominal wall, right lower quadrant without penetration into peritoneal cavity, subsequent encounter S31.103D and Cellulitis of left lower leg L03.116 [facility] [address] [facility] [address] [place] [address] 01/20/2024 Nohemineela Iyer 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 ; Psoriasis L40.9 ; Psoriatic arthritis mutilans L40.52 ; Non-pressure chronic ulcer of other part of left lower leg with unspecified severity L97.829 ; Non-pressure chronic ulcer of other part of right foot with unspecified severity L97.519 ; Non-pressure chronic ulcer of other part of right lower leg limited to breakdown of skin L97.811 ; Disruption of external operation (surgical) wound, not elsewhere classified, subsequent encounter T81.31XD ; Encounter for surgical aftercare following surgery on the skin and subcutaneous tissue Z48.817 ; Unspecified open wound of abdominal wall, right lower quadrant without penetration into peritoneal cavity, subsequent encounter S31.103D and Cellulitis of left lower leg L03.116 [facility] [address] [facility] [address] [place] [address] 01/27/2024 Nohemi Iyer 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 ; Psoriasis L40.9 ; Psoriatic arthritis mutilans L40.52 ; Non-pressure chronic ulcer of other part of left lower leg with unspecified severity L97.829 ; Non-pressure chronic ulcer of other part of right foot with unspecified severity L97.519 ; Non-pressure chronic ulcer of other part of right lower leg limited to breakdown of skin L97.811 ; Disruption of external operation (surgical) wound, not elsewhere classified, subsequent encounter T81.31XD ; Encounter for surgical aftercare following surgery on the skin and subcutaneous tissue Z48.817 and Unspecified open wound of abdominal wall, right lower quadrant without penetration into peritoneal cavity, subsequent encounter S31.103D [facility] [address] [address] 02/03/2024 Nohemi Iyer 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 ; Psoriasis L40.9 ; Psoriatic arthritis mutilans L40.52 ; Non-pressure chronic ulcer of other part of left lower leg with unspecified severity L97.829 ; Non-pressure chronic ulcer of other part of right foot with unspecified severity L97.519 ; Non-pressure chronic ulcer of other part of right lower leg limited to breakdown of skin L97.811 ; Disruption of external operation (surgical) wound, not elsewhere classified, subsequent encounter T81.31XD ; Encounter for surgical aftercare following surgery on the skin and subcutaneous tissue Z48.817 and Unspecified open wound of abdominal wall, right lower quadrant without penetration into peritoneal cavity, subsequent encounter S31.103D [address] [address] 02/10/2024 Nohemi Iyer 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 ; Psoriasis L40.9 ; Psoriatic arthritis mutilans L40.52 ; Non-pressure chronic ulcer of other part of left lower leg with unspecified severity L97.829 ; Non-pressure chronic ulcer of other part of right foot with unspecified severity L97.519 ; Non-pressure chronic ulcer of other part of right lower leg limited to breakdown of skin L97.811 ; Disruption of external operation (surgical) wound, not elsewhere classified, subsequent encounter T81.31XD ; Encounter for surgical aftercare following surgery on the skin and subcutaneous tissue Z48.817 and Unspecified open wound of abdominal wall, right lower quadrant without penetration into peritoneal cavity, subsequent encounter S31.103D [address] [address] 02/17/2024 Jooyun Richrads 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 ; Psoriasis L40.9 ; Psoriatic arthritis mutilans L40.52 ; Non-pressure chronic ulcer of other part of left lower leg with unspecified severity L97.829 ; Non-pressure chronic ulcer of other part of right foot with unspecified severity L97.519 ; Non-pressure chronic ulcer of other part of right lower leg limited to breakdown of skin L97.811 ; Disruption of external operation (surgical) wound, not elsewhere classified, subsequent encounter T81.31XD ; Encounter for surgical aftercare following surgery on the skin and subcutaneous tissue Z48.817 and Unspecified open wound of abdominal wall, right lower quadrant without penetration into peritoneal cavity, subsequent encounter S31.103D [facility] [address] [address] 02/24/2024 Nohemi Iyer 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 ; Psoriasis L40.9 ; Psoriatic arthritis mutilans L40.52 ; Non-pressure chronic ulcer of other part of left lower leg with unspecified severity L97.829 ; Non-pressure chronic ulcer of other part of right foot with unspecified severity L97.519 ; Non-pressure chronic ulcer of other part of right lower leg limited to breakdown of skin L97.811 ; Disruption of external operation (surgical) wound, not elsewhere classified, subsequent encounter T81.31XD ; Encounter for surgical aftercare following surgery on the skin and subcutaneous tissue Z48.817 and Unspecified open wound of abdominal wall, right lower quadrant without penetration into peritoneal cavity, subsequent encounter S31.103D [facility] [address] [address] 03/02/2024 Nohemi Iyer 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 ; Psoriasis L40.9 ; Psoriatic arthritis mutilans L40.52 ; Non-pressure chronic ulcer of other part of left lower leg with unspecified severity L97.829 ; Non-pressure chronic ulcer of other part of right foot with unspecified severity L97.519 ; Non-pressure chronic ulcer of other part of right lower leg limited to breakdown of skin L97.811 ; Disruption of external operation (surgical) wound, not elsewhere classified, subsequent encounter T81.31XD ; Encounter for surgical aftercare following surgery on the skin and subcutaneous tissue Z48.817 and Unspecified open wound of abdominal wall, right lower quadrant without penetration into peritoneal cavity, subsequent encounter S31.103D [place] [address] 03/16/2024 Nohemi Iyer 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 ; Psoriasis L40.9 ; Psoriatic arthritis mutilans L40.52 ; Non-pressure chronic ulcer of other part of left lower leg with unspecified severity L97.829 ; Non-pressure chronic ulcer of other part of right foot with unspecified severity L97.519 ; Non-pressure chronic ulcer of other part of right lower leg limited to breakdown of skin L97.811 ; Disruption of external operation (surgical) wound, not elsewhere classified, subsequent encounter T81.31XD ; Encounter for surgical aftercare following surgery on the skin and subcutaneous tissue Z48.817 and Unspecified open wound of abdominal wall, right lower quadrant without penetration into peritoneal cavity, subsequent encounter S31.103D [facility] [address] [address] 03/23/2024 Nohemi Iyer 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 ; Psoriasis L40.9 ; Psoriatic arthritis mutilans L40.52 ; Non-pressure chronic ulcer of other part of left lower leg with unspecified severity L97.829 ; Non-pressure chronic ulcer of other part of right foot with unspecified severity L97.519 ; Non-pressure chronic ulcer of other part of right lower leg limited to breakdown of skin L97.811 ; Disruption of external operation (surgical) wound, not elsewhere classified, subsequent encounter T81.31XD ; Encounter for surgical aftercare following surgery on the skin and subcutaneous tissue Z48.817 and Unspecified open wound of abdominal wall, right lower quadrant without penetration into peritoneal cavity, subsequent encounter S31.103D [facility] [address] [address] 03/30/2024 Nohemi Iyer 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 ; Psoriasis L40.9 ; Psoriatic arthritis mutilans L40.52 ; Non-pressure chronic ulcer of other part of left lower leg with unspecified severity L97.829 ; Non-pressure chronic ulcer of other part of right foot with unspecified severity L97.519 ; Non-pressure chronic ulcer of other part of right lower leg limited to breakdown of skin L97.811 ; Disruption of external operation (surgical) wound, not elsewhere classified, subsequent encounter T81.31XD ; Encounter for surgical aftercare following surgery on the skin and subcutaneous tissue Z48.817 and Unspecified open wound of abdominal wall, right lower quadrant without penetration into peritoneal cavity, subsequent encounter S31.103D [facility] [address] [address] 04/06/2024 Nohemi Iyer 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 ; Psoriasis L40.9 ; Psoriatic arthritis mutilans L40.52 ; Non-pressure chronic ulcer of other part of left lower leg with unspecified severity L97.829 ; Non-pressure chronic ulcer of other part of right foot with unspecified severity L97.519 ; Non-pressure chronic ulcer of other part of right lower leg limited to breakdown of skin L97.811 ; Disruption of external operation (surgical) wound, not elsewhere classified, subsequent encounter T81.31XD ; Encounter for surgical aftercare following surgery on the skin and subcutaneous tissue Z48.817 and Unspecified open wound of abdominal wall, right lower quadrant without penetration into peritoneal cavity, subsequent encounter S31.103D [facility] [address] [address] 04/13/2024 Nohemi Iyer 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 ; Psoriasis L40.9 ; Psoriatic arthritis mutilans L40.52 ; Non-pressure chronic ulcer of other part of left lower leg with unspecified severity L97.829 ; Non-pressure chronic ulcer of other part of right foot with unspecified severity L97.519 ; Non-pressure chronic ulcer of other part of right lower leg limited to breakdown of skin L97.811 ; Disruption of external operation (surgical) wound, not elsewhere classified, subsequent encounter T81.31XD ; Encounter for surgical aftercare following surgery on the skin and subcutaneous tissue Z48.817 and Unspecified open wound of abdominal wall, right lower quadrant without penetration into peritoneal cavity, subsequent encounter S31.103D [facility] [address] [address] 04/20/2024 Nohemi Iyer 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 ; Psoriasis L40.9 ; Psoriatic arthritis mutilans L40.52 ; Non-pressure chronic ulcer of other part of left lower leg with unspecified severity L97.829 ; Non-pressure chronic ulcer of other part of right foot with unspecified severity L97.519 ; Non-pressure chronic ulcer of other part of right lower leg limited to breakdown of skin L97.811 ; Disruption of external operation (surgical) wound, not elsewhere classified, subsequent encounter T81.31XD ; Encounter for surgical aftercare following surgery on the skin and subcutaneous tissue Z48.817 and Unspecified open wound of abdominal wall, right lower quadrant without penetration into peritoneal cavity, subsequent encounter S31.103D [facility] [address] [address] 04/27/2024 Nohemineela Smithett 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 ; Psoriasis L40.9 ; Psoriatic arthritis mutilans L40.52 ; Non-pressure chronic ulcer of other part of left lower leg with unspecified severity L97.829 ; Non-pressure chronic ulcer of other part of right foot with unspecified severity L97.519 ; Non-pressure chronic ulcer of other part of right lower leg limited to breakdown of skin L97.811 ; Disruption of external operation (surgical) wound, not elsewhere classified, subsequent encounter T81.31XD ; Encounter for surgical aftercare following surgery on the skin and subcutaneous tissue Z48.817 and Unspecified open wound of abdominal wall, right lower quadrant without penetration into peritoneal cavity, subsequent encounter S31.103D [facility] [address] 05/04/2024 Nohemineela Smithett 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 ; Psoriasis L40.9 ; Psoriatic arthritis mutilans L40.52 ; Non-pressure chronic ulcer of other part of left lower leg with unspecified severity L97.829 ; Non-pressure chronic ulcer of other part of right foot with unspecified severity L97.519 ; Non-pressure chronic ulcer of other part of right lower leg limited to breakdown of skin L97.811 and Encounter for surgical aftercare following surgery on the skin and subcutaneous tissue Z48.817 [facility] [address] 05/11/2024 Nohemineela Iyer 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 ; Psoriasis L40.9 ; Psoriatic arthritis mutilans L40.52 ; Non-pressure chronic ulcer of other part of left lower leg with unspecified severity L97.829 ; Non-pressure chronic ulcer of other part of right foot with unspecified severity L97.519 and Encounter for surgical aftercare following surgery on the skin and subcutaneous tissue Z48.817 [facility] [address] 05/18/2024 Nohemineela Iyer 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 ; Psoriasis L40.9 ; Psoriatic arthritis mutilans L40.52 ; Non-pressure chronic ulcer of other part of left lower leg with unspecified severity L97.829 ; Non-pressure chronic ulcer of other part of right foot with unspecified severity L97.519 and Encounter for surgical aftercare following surgery on the skin and subcutaneous tissue Z48.817 [facility] [address] 05/27/2024 Nohemineela Smithett 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 ; Psoriasis L40.9 ; Psoriatic arthritis mutilans L40.52 ; Non-pressure chronic ulcer of other part of left lower leg with unspecified severity L97.829 and Non-pressure chronic ulcer of other part of right foot with unspecified severity L97.519 [facility] [address] [address] 06/10/2024 Nohemi Iyer 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 ; Psoriasis L40.9 ; Psoriatic arthritis mutilans L40.52 ; Non-pressure chronic ulcer of other part of left lower leg with unspecified severity L97.829 and Non-pressure chronic ulcer of other part of right foot with unspecified severity L97.519 [facility] [address] [address] 06/15/2024 Nohemi Iyer 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 ; Psoriasis L40.9 ; Psoriatic arthritis mutilans L40.52 ; Non-pressure chronic ulcer of other part of left lower leg with unspecified severity L97.829 and Non-pressure chronic ulcer of other part of right foot with unspecified severity L97.519 [facility] [address] [address] 12/09/2023 Marjan Barrett [address] [address] 02/03/2024 Marjan Barrett Assessments Encounter Date Diagnosis (ICD Code) Assessment Notes Treatment Notes Treatment Clinical Notes Section Notes 11/11/2023 Disruption of external operation (surgical) wound, not elsewhere classified, subsequent encounter (ICD-10 - T81.31XD) 11/11/2023 Livedo vasculitis (ICD-10 - L95.0) 12/09/2023 Disruption of external operation (surgical) wound, not elsewhere classified, subsequent encounter (ICD-10 - T81.31XD) 12/09/2023 Livedo vasculitis (ICD-10 - L95.0) 12/16/2023 Livedo vasculitis (ICD-10 - L95.0) 12/23/2023 Livedo vasculitis (ICD-10 - L95.0) 12/30/2023 Livedoid vasculopathy (ICD-10 - L95.0) 12/30/2023 Psoriasis (ICD-10 - L40.9) 01/06/2024 Livedoid vasculopathy (ICD-10 - L95.0) 01/13/2024 Livedoid vasculopathy (ICD-10 - L95.0) 01/20/2024 Livedoid vasculopathy (ICD-10 - L95.0) 01/27/2024 Livedoid vasculopathy (ICD-10 - L95.0) 01/27/2024 Psoriasis (ICD-10 - L40.9) 02/03/2024 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 Overall her wounds are improving. Her RLE has eschar, adherent without drainage. LLE is improving and has epithelial islands after debridement, slow improvement continues. R lateral foot is measuring smaller today and has fewer pinpoint open areas; debridement performed as detailed above. Abdominal wounds are both primairly epithelial with small adherent scabbed areas, RLQ scab lifting and removed, underlying tissue CDI and wound is resolved. There were no findings to indicate any acute underlying infectious processes to any of her wound sites; I performed debridement as detailed to her LLE and R lateral foot to remove lifting deitalized tissue and the other wounds are nicely clean with epithelial and granular tissue and did not require debridement. I cleaned the wounds with wound cleanser and nursing applied triamcinolone mixed w cerave to the periwounds f/b adaptic fb aquacel ag to LLE and R lateral foot f.b DCD, left RLE and applied cerave mixed with triamcinolone to wounds on abdomen, leaving LEAD MINER BLASTING. Lastly tubigrip was applied toes to below her knees with instructions to apply in AM and remove @ HS. I recommended she and her perform dressing changes Saturday and Saturday with CeraVe mixed with triamcinolone to periwound of her LLE wound and R lateral foot wound, adaptic fb aquacel ag (do not substitute) fb DCDs, tubi rat culturist on in AM and off @ HS. Leave RLE SHEKHAR. Cerave mixed w triamcinolone to abdomen leaving SHEKHAR, applying BID. Elevation discussed and recommended. She will continue to follow hematology and dermatology and her surgeon for her abdominal wounds did not feel she needed a surgical follow-up. She will return for a follow-up in one week to monitor her progress, calling with any questions or concerns prior. Patient, and nursing agree w plan of care. I Nohemi Iyer MSN, [facility]- examined, evaluated and treated the patient. Dr. Elizabeth Yoder was available for any question or concerns that I may have had. 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 Overall her wounds are improving. Her RLE has eschar, adherent without drainage. LLE is improving and has epithelial islands after debridement, slow improvement continues. R lateral foot is measuring smaller today and has fewer pinpoint open areas; debridement performed as detailed above. Abdominal wounds are both resolved. There were no findings to indicate any acute underlying infectious processes to any of her wound sites; I performed debridement as detailed to her LLE and R lateral foot to remove lifting deitalized tissue and the other wounds are nicely clean with epithelial and granular tissue and did not require debridement. I cleaned the wounds with wound cleanser and nursing applied triamcinolone mixed w cerave to the periwounds f/b adaptic fb aquacel ag to LLE and R lateral foot f.b DCD. Lastly tubigrip was applied toes to below her knees with instructions to apply in AM and remove @ HS. I recommended she and her perform dressing changes Saturday and Saturday with CeraVe mixed with triamcinolone to periwound of her LLE wound and R lateral foot wound, adaptic fb aquacel ag (do not substitute) fb DCDs, tubi rat culturist on in AM and off @ HS. Leave RLE SHEKHAR. Elevation discussed and recommended. She will continue to follow hematology and dermatology and her surgeon for her abdominal wounds did not feel she needed a surgical follow-up. She will return for a follow-up in one week to monitor her progress, calling with any questions or concerns prior. Patient, and nursing agree w plan of care. I Nohemi Iyer MSN, [facility] examined, evaluated and treated the patient. Dr. Elizabeth Yoder was available for any question or concerns that I may have had. 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 Overall her wounds are improving. Her RLE has eschar, adherent without drainage. LLE is stable and has epithelial islands after debridement, slow improvement continues. R lateral foot is also stable today; debridement performed as detailed above. Abdominal wounds both remain resolved. There were no findings to indicate any acute underlying infectious processes to any of her wound sites; I performed debridement as detailed to her LLE and R lateral foot to remove lifting deitalized tissue and the other wounds are nicely clean with epithelial and granular tissue and did not require debridement. I cleaned the wounds with wound cleanser and nursing applied triamcinolone mixed w cerave to the periwounds f/b adaptic fb aquacel ag to LLE and R lateral foot f.b DCD. Lastly tubigrip was applied toes to below her knees with instructions to apply in AM and remove @ HS. I recommended she and her perform dressing changes Saturday and Saturday with CeraVe mixed with triamcinolone to periwound of her LLE wound and R lateral foot wound, adaptic fb aquacel ag (do not substitute) fb DCDs, tubi rat culturist on in AM and off @ HS. Follow derm recs for anterior RLE, and apply above adaptic and aquacel ag dressing if the wound opens. Elevation discussed and recommended. She will continue to follow hematology and dermatology and her surgeon for her abdominal wounds did not feel she needed a surgical follow-up. She will return for a follow-up in one week to monitor her progress, calling with any questions or concerns prior. Patient, and nursing agree w plan of care. I Nohemi ROACH, [facility]- examined, evaluated and treated the patient. Dr. Elizabeth Yoder was available for any question or concerns that I may have had. 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 Overall her wounds are improving. Her RLE has lifting eschar, performed selective debridement and underlying tissue is fragile epithelial. LLE contineus to slolwy improve, epithelial islands growing and granular tissue reducting. R lateral foot is also improved today; debridement performed as detailed above. LUQ abdominal wound has a fluctuant scab; I performed debridement to remove the lifting scab and there is a granular wound underlying with a small area of undermining. There were no findings to indicate any acute underlying infectious processes to any of her wound sites. I cleaned the wounds with wound cleanser and nursing applied triamcinolone mixed w cerave to the periwounds f/b adaptic fb aquacel ag to LLE and R lateral foot f.b DCD and triamcinolone and cerave to periwound of LUQ abdominal wound, adaptic fb bandaid. Lastly tubigrip was applied toes to below her knees with instructions to apply in AM and remove @ HS. I recommended she and her perform dressing changes Saturday and Saturday with CeraVe mixed with triamcinolone to periwound of her LLE wound and R lateral foot wound, adaptic fb aquacel ag (do not substitute) fb DCDs, tubi rat culturist on in AM and off @ HS. triamcinolone and cerave to periwound of LUQ abdominal wound, adaptic fb bandaid. Follow derm recs for anterior RLE, and apply above adaptic and aquacel ag dressing if the wound opens. Elevation discussed and recommended. She will continue to follow hematology and dermatology and her surgeon for her abdominal wounds did not feel she needed a surgical follow-up. She will return for a follow-up in one week to monitor her progress, calling with any questions or concerns prior. Patient, and nursing agree w plan of care. I Nohemi Iyer MSN, [facility]- examined, evaluated and treated the patient. Dr. Elizabeth Yoder was available for any question or concerns that I may have had. 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 Overall her wounds are improving. Her RLE is nicely resolved with epithelial tissue. LLE continues to slolwy improve, epithelial islands growing and granular tissue reducting. R lateral foot is also improved today; debridement performed as detailed above. LUQ abdominal wound has an adherent scab without drainage that was left SHEKHAR. There were no findings to indicate any acute underlying infectious processes to any of her wound sites. I cleaned the wounds with wound cleanser and nursing applied triamcinolone mixed w cerave to the periwounds f/b adaptic fb aquacel ag to LLE and R lateral foot f.b DCD. Lastly tubigrip was applied toes to below her knees with instructions to apply in AM and remove @ HS. I recommended she and her perform dressing changes Saturday and Saturday with CeraVe mixed with triamcinolone to periwound of her LLE wound and R lateral foot wound, adaptic fb aquacel ag (do not substitute) fb DCDs, tubi rat culturist on in AM and off @ HS. Leave LUQ abdominal wound LEAD MINER BLASTING, may cover w bandaid if needed/if rubbing up on clothing and causing discomfort. DC tx to RLE and leave LEAD MINER BLASTING as the wound is nicely resolved. Elevation discussed and recommended. She will continue to follow hematology and dermatology and her surgeon for her abdominal wounds did not feel she needed a surgical follow-up. She will return for a follow-up in one week to monitor her progress, calling with any questions or concerns prior. Patient, and nursing agree w plan of care. I Nohemi Iyer MSN, [facility]- examined, evaluated and treated the patient. Dr. Elizabeth Yoder was available for any question or concerns that I may have had. 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 Overall her wounds are improving. Her LLE is nicely resolved with epithelial tissue. R lateral foot is also improved today; debridement performed as detailed above, scant drainage remaining. LUQ abdominal wound is nicely resolved. There were no findings to indicate any acute underlying infectious processes to any of her wound sites. I cleaned the wound to her R lateral foot with wound cleanser and nursing applied triamcinolone mixed w cerave to the periwound f/b adaptic fb aquacel ag R lateral foot f.b DCD and the cream mixture to her intact skin on her LLE. Lastly tubigrip was applied toes to below her knees with instructions to apply in AM and remove @ HS. I recommended she and her perform dressing changes Saturday and Saturday with CeraVe mixed with triamcinolone to periwound of her R lateral foot wound, adaptic fb aquacel ag (do not substitute) fb DCDs, tubi rat culturist on in AM and off @ HS. Leave LUQ abdominal wound SHEKHAR and LLE, apply cerave mixed with triamcinolone to intact skin. Elevation discussed and recommended. She will continue to follow hematology and dermatology and her surgeon for her abdominal wounds did not feel she needed a surgical follow-up. She will return for a follow-up in one week to monitor her progress, calling with any questions or concerns prior. Patient, and nursing agree w plan of care. I Nohemi Iyer MSN, [facility]- examined, evaluated and treated the patient. Dr. Elizabeth Yoder was available for any question or concerns that I may have had. 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 Overall her wounds are improving. Her LLE remains resolved with intact but fragile epithelial tissue. R lateral foot is stable but still has a cluster of 2 open pinpoint clustered areas with drainage; debridement performed as detailed above, scant drainage remaining. LUQ abdominal wound remains nicely resolved. There were no findings to indicate any acute underlying infectious processes to any of her wound sites. I cleaned the wound to her R lateral foot with wound cleanser and nursing applied triamcinolone mixed w cerave to the periwound f/b puracol to her R lateral foot f.b DCD and the cream mixture to her intact skin on her LLE. Lastly tubigrip was applied toes to below her knees with instructions to apply in AM and remove @ HS. I recommended she and her perform dressing changes on only with CeraVe mixed with triamcinolone to periwound of her R lateral foot wound, puracol fb DCD, tubi rat culturist on in AM and off @ HS. Leave LUQ abdominal wound LEAD MINER BLASTING and LLE, apply cerave mixed with triamcinolone to intact skin. Elevation discussed and recommended. She will continue to follow hematology and dermatology. She will return for a follow-up in one week to monitor her progress, calling with any questions or concerns prior. Patient, and nursing agree w plan of care. I Nohemi Iyer MSN, [facility]- examined, evaluated and treated the patient. Dr. Elizabeth Yoder was available for any question or concerns that I may have had. 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 Overall her wounds are improving. Her LLE remains resolved with intact but fragile epithelial tissue. R lateral foot is stable but still has a cluster of 2 open pinpoint clustered areas with drainage; debridement performed as detailed above, scant drainage remaining; the wound does appear more superficial today and has more epithelial tissue. her LLE has a cluster of areas of eschar; I performed debridement as detailed to remove devitalized and fibrous tissue and one open area remains. There were no findings to indicate any acute underlying infectious processes to any of her wound sites. I cleaned the wounds to her R lateral foot and LLE with wound cleanser and nursing applied triamcinolone mixed w cerave to the periwounds f/b puracol and DCDs. Lastly tubigrip was applied toes to below her knees with instructions to apply in AM and remove @ HS. I recommended she and her perform dressing changes on only with CeraVe mixed with triamcinolone to periwound of her R lateral foot and LLE wound, puracol fb DCD, tubi rat culturist on in AM and off @ HS. Leave LUQ abdominal wound LEAD MINER BLASTING, apply cerave mixed with triamcinolone to intact skin. Elevation discussed and recommended. She will continue to follow hematology and dermatology. She will return for a follow-up in one week to monitor her progress, calling with any questions or concerns prior. Patient, and nursing agree w plan of care. I Nohemi Iyer MSN, [facility]- examined, evaluated and treated the patient. Dr. Elizabeth Yoder was available for any question or concerns that I may have had. 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 Overall her wounds are improving. Her LLE is slightly improved with a small granular area exposed after debridement. R lateral foot is stable but still has a cluster of 2 open pinpoint clustered areas with drainage from 1; debridement performed as detailed above, scant drainage remaining; the wound does appear more superficial today and has more epithelial tissue. her LLE has a cluster of areas of eschar; I performed debridement as detailed to remove devitalized and fibrous tissue and one open area remains. There were no findings to indicate any acute underlying infectious processes to any of her wound sites. I cleaned the wounds to her R lateral foot and LLE with wound cleanser and nursing applied triamcinolone mixed w cerave to the periwounds f/b puracol and DCDs. Lastly tubigrip was applied toes to below her knees with instructions to apply in AM and remove @ HS. I recommended she and her perform dressing changes on only with CeraVe mixed with triamcinolone to periwound of her R lateral foot and LLE wound, puracol fb DCD, tubi rat culturist on in AM and off @ HS. Leave LUQ abdominal wound SHEKHAR, apply cerave mixed with triamcinolone to intact skin. Elevation discussed and recommended. She will continue to follow hematology and dermatology. She will return for a follow-up in about one week to monitor her progress, calling with any questions or concerns prior. Patient, and nursing agree w plan of care. I Nohemi Iyer MSN, [facility]- examined, evaluated and treated the patient. Dr. Elizabeth Yoder was available for any question or concerns that I may have had. 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 Overall her wounds are improving. Her LLE is nicely resolved with epithelial tissue and a pinpoint adherent scab without fluctuance, erythema or drainage. R lateral foot is improving and has 1 open area remaining; debridement performed as detailed above, scant drainage remaining; the wound does appear more superficial today and has clean granular tissue after debridement. There were no findings to indicate any acute underlying infectious processes to any of her wound sites. I cleaned the wound to her R lateral foot with wound cleanser and nursing applied triamcinolone mixed w cerave to the periwound f/b puracol and DCD to R lateral foot and SP and left LLE LEAD MINER BLASTING. Lastly tubigrip was applied toes to below her knees with instructions to apply in AM and remove @ HS. I recommended she and her perform dressing changes on two to three times weekly with CeraVe mixed with triamcinolone to periwound of her R lateral foot and skin prep, SHEKHAR to LLE wound QOD. Slipper socks vs slippers recommended to prevent friction and shearing to R lateral foot wound which may be causing increased irriration or pain. Elevation discussed and recommended. She will continue to follow hematology and dermatology. She will return for a follow-up in about two weeks per her request to monitor her progress, calling with any questions or concerns prior. Patient, and nursing agree w plan of care. I Nohemi Iyer MSN, [facility]- examined, evaluated and treated the patient. Dr. Elizabeth Yoder was available for any question or concerns that I may have had. 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 Overall her wounds are improving. Her LLE has a cluster of 2 scabs that were easily removed and undelying tissue remains fragile epithelial. R lateral foot is stable; she reports persistent drainage from the wound site but it is dry on exam today; even with selective debridement I do not reach depth or drainage. There were no findings to indicate any acute underlying infectious processes to any of her wound sites. I cleaned the wounds to her R lateral foot and LLE with wound cleanser and nursing applied skin prep and left SHEKHAR. Lastly tubigrip was applied toes to below her knees with instructions to apply in AM and remove @ HS. I recommended she and her perform dressing changes QD to BID with skin prep, leaving SHEKHAR to her R lateral foot and LLE. Slipper socks vs slippers recommended to prevent friction and shearing to R lateral foot wound which may be causing increased irriration or pain. Elevation discussed and recommended. She will continue to follow hematology and dermatology. She will return for a follow-up in about one week to monitor her progress, calling with any questions or concerns prior. Patient, and nursing agree w plan of care. I Nohemi Iyer MSN, [facility]- examined, evaluated and treated the patient. Dr. Elizabeth Yoder was available for any question or concerns that I may have had. 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 Overall her wounds are improving. Her LLE has a cluster of 2 scabs that were easily removed and underlying tissue remains fragile epithelial. R lateral foot is stable with 2 adherent scabs, not lifting. There were no findings to indicate any acute underlying infectious processes to any of her wound sites. I cleaned the wounds to her R lateral foot and LLE with wound cleanser and applied skin prep and left LEAD MINER BLASTING. Lastly Tubigrip was applied toes to below her knees with instructions to apply in AM and remove @ HS. I recommended she utilize her tubi rat culturist when ambulating longer or prolonged periods or in heat. Elevation discussed and recommended. She will continue to follow hematology and dermatology. She does not require a follow-up at this time but will call with new or reopened areas. Patient, and nursing agree w plan of care. I Nohemi Iyer MSN, [facility]- examined, evaluated and treated the patient. Dr. Elizabeth Yoder was available for any question or concerns that I may have had. 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) 04/20/2024 Psoriasis (ICD-10 - L40.9) 04/13/2024 Psoriasis (ICD-10 - L40.9) 04/06/2024 Psoriasis (ICD-10 - L40.9) 03/30/2024 Psoriasis (ICD-10 - L40.9) 03/23/2024 Psoriasis (ICD-10 - L40.9) 03/16/2024 Psoriasis (ICD-10 - L40.9) 03/02/2024 Psoriasis (ICD-10 - L40.9) 02/24/2024 Psoriasis (ICD-10 - L40.9) 02/17/2024 Psoriasis (ICD-10 - L40.9) 02/10/2024 Psoriasis (ICD-10 - L40.9) 02/03/2024 Psoriasis (ICD-10 - L40.9) 01/20/2024 Psoriasis (ICD-10 - L40.9) 01/27/2024 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) 01/13/2024 Psoriasis (ICD-10 - L40.9) 01/06/2024 Psoriasis (ICD-10 - L40.9) 12/30/2023 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) 12/23/2023 Disruption of external operation (surgical) wound, not elsewhere classified, subsequent encounter (ICD-10 - T81.31XD) 12/16/2023 Disruption of external operation (surgical) wound, not elsewhere classified, subsequent encounter (ICD-10 - T81.31XD) 12/09/2023 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) 11/11/2023 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) 12/09/2023 Other obesity due to excess calories (ICD-10 - E66.09) 11/11/2023 Other obesity due to excess calories (ICD-10 - E66.09) 12/16/2023 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) 12/23/2023 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) 12/30/2023 Non-pressure chronic ulcer of other part of left lower leg with unspecified severity (ICD-10 - L97.829) 01/06/2024 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) 01/13/2024 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) 01/20/2024 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) 01/27/2024 Non-pressure chronic ulcer of other part of left lower leg with unspecified severity (ICD-10 - L97.829) 02/03/2024 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) 02/10/2024 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) 02/17/2024 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) 02/24/2024 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) 03/02/2024 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) 03/16/2024 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) 03/23/2024 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) 03/30/2024 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) 04/06/2024 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) 04/13/2024 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) 04/20/2024 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) 04/27/2024 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) 05/27/2024 Non-pressure chronic ulcer of other part of left lower leg with unspecified severity (ICD-10 - L97.829) 05/18/2024 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) 05/04/2024 Non-pressure chronic ulcer of other part of left lower leg with unspecified severity (ICD-10 - L97.829) 05/11/2024 Non-pressure chronic ulcer of other part of left lower leg with unspecified severity (ICD-10 - L97.829) 06/15/2024 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) 06/10/2024 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) 06/10/2024 Non-pressure chronic ulcer of other part of left lower leg with unspecified severity (ICD-10 - L97.829) 06/15/2024 Non-pressure chronic ulcer of other part of left lower leg with unspecified severity (ICD-10 - L97.829) 12/23/2023 Other obesity due to excess calories (ICD-10 - E66.09) 05/18/2024 Non-pressure chronic ulcer of other part of left lower leg with unspecified severity (ICD-10 - L97.829) 05/27/2024 Non-pressure chronic ulcer of other part of right foot with unspecified severity (ICD-10 - L97.519) 04/27/2024 Non-pressure chronic ulcer of other part of left lower leg with unspecified severity (ICD-10 - L97.829) 05/04/2024 Non-pressure chronic ulcer of other part of right foot with unspecified severity (ICD-10 - L97.519) 05/11/2024 Non-pressure chronic ulcer of other part of right foot with unspecified severity (ICD-10 - L97.519) 04/20/2024 Non-pressure chronic ulcer of other part of left lower leg with unspecified severity (ICD-10 - L97.829) 04/13/2024 Non-pressure chronic ulcer of other part of left lower leg with unspecified severity (ICD-10 - L97.829) 04/06/2024 Non-pressure chronic ulcer of other part of left lower leg with unspecified severity (ICD-10 - L97.829) 03/30/2024 Non-pressure chronic ulcer of other part of left lower leg with unspecified severity (ICD-10 - L97.829) 03/23/2024 Non-pressure chronic ulcer of other part of left lower leg with unspecified severity (ICD-10 - L97.829) 03/16/2024 Non-pressure chronic ulcer of other part of left lower leg with unspecified severity (ICD-10 - L97.829) 03/02/2024 Non-pressure chronic ulcer of other part of left lower leg with unspecified severity (ICD-10 - L97.829) 02/24/2024 Non-pressure chronic ulcer of other part of left lower leg with unspecified severity (ICD-10 - L97.829) 02/17/2024 Non-pressure chronic ulcer of other part of left lower leg with unspecified severity (ICD-10 - L97.829) 02/10/2024 Non-pressure chronic ulcer of other part of left lower leg with unspecified severity (ICD-10 - L97.829) 02/03/2024 Non-pressure chronic ulcer of other part of left lower leg with unspecified severity (ICD-10 - L97.829) 01/27/2024 Non-pressure chronic ulcer of other part of right foot with unspecified severity (ICD-10 - L97.519) 01/20/2024 Non-pressure chronic ulcer of other part of left lower leg with unspecified severity (ICD-10 - L97.829) 01/13/2024 Non-pressure chronic ulcer of other part of left lower leg with unspecified severity (ICD-10 - L97.829) 01/06/2024 Non-pressure chronic ulcer of other part of left lower leg with unspecified severity (ICD-10 - L97.829) 12/30/2023 Non-pressure chronic ulcer of other part of right foot with unspecified severity (ICD-10 - L97.519) 12/16/2023 Other obesity due to excess calories (ICD-10 - E66.09) 11/11/2023 Non-pressure chronic ulcer of other part of left lower leg with unspecified severity (ICD-10 - L97.829) 12/09/2023 Non-pressure chronic ulcer of other part of left lower leg with unspecified severity (ICD-10 - L97.829) 12/09/2023 Non-pressure chronic ulcer of other part of right foot with unspecified severity (ICD-10 - L97.519) 11/11/2023 Non-pressure chronic ulcer of other part of right foot with unspecified severity (ICD-10 - L97.519) 12/16/2023 Non-pressure chronic ulcer of other part of left lower leg with unspecified severity (ICD-10 - L97.829) 12/23/2023 Non-pressure chronic ulcer of other part of left lower leg with unspecified severity (ICD-10 - L97.829) 12/30/2023 Non-pressure chronic ulcer of other part of right lower leg limited to breakdown of skin (ICD-10 - L97.811) 01/06/2024 Non-pressure chronic ulcer of other part of right foot with unspecified severity (ICD-10 - L97.519) 01/13/2024 Non-pressure chronic ulcer of other part of right foot with unspecified severity (ICD-10 - L97.519) 01/20/2024 Non-pressure chronic ulcer of other part of right foot with unspecified severity (ICD-10 - L97.519) 01/27/2024 Non-pressure chronic ulcer of other part of right lower leg limited to breakdown of skin (ICD-10 - L97.811) 02/03/2024 Non-pressure chronic ulcer of other part of right foot with unspecified severity (ICD-10 - L97.519) 02/10/2024 Non-pressure chronic ulcer of other part of right foot with unspecified severity (ICD-10 - L97.519) 02/17/2024 Non-pressure chronic ulcer of other part of right foot with unspecified severity (ICD-10 - L97.519) 02/24/2024 Non-pressure chronic ulcer of other part of right foot with unspecified severity (ICD-10 - L97.519) 03/02/2024 Non-pressure chronic ulcer of other part of right foot with unspecified severity (ICD-10 - L97.519) 03/16/2024 Non-pressure chronic ulcer of other part of right foot with unspecified severity (ICD-10 - L97.519) 03/23/2024 Non-pressure chronic ulcer of other part of right foot with unspecified severity (ICD-10 - L97.519) 03/30/2024 Non-pressure chronic ulcer of other part of right foot with unspecified severity (ICD-10 - L97.519) 04/06/2024 Non-pressure chronic ulcer of other part of right foot with unspecified severity (ICD-10 - L97.519) 04/13/2024 Non-pressure chronic ulcer of other part of right foot with unspecified severity (ICD-10 - L97.519) 04/20/2024 Non-pressure chronic ulcer of other part of right foot with unspecified severity (ICD-10 - L97.519) 05/04/2024 Non-pressure chronic ulcer of other part of right lower leg limited to breakdown of skin (ICD-10 - L97.811) 04/27/2024 Non-pressure chronic ulcer of other part of right foot with unspecified severity (ICD-10 - L97.519) 05/11/2024 Encounter for surgical aftercare following surgery on the skin and subcutaneous tissue (ICD-10 - Z48.817) 05/18/2024 Non-pressure chronic ulcer of other part of right foot with unspecified severity (ICD-10 - L97.519) 06/10/2024 Non-pressure chronic ulcer of other part of right foot with unspecified severity (ICD-10 - L97.519) 06/15/2024 Non-pressure chronic ulcer of other part of right foot with unspecified severity (ICD-10 - L97.519) 05/04/2024 Encounter for surgical aftercare following surgery on the skin and subcutaneous tissue (ICD-10 - Z48.817) 05/18/2024 Encounter for surgical aftercare following surgery on the skin and subcutaneous tissue (ICD-10 - Z48.817) 04/27/2024 Non-pressure chronic ulcer of other part of right lower leg limited to breakdown of skin (ICD-10 - L97.811) 04/20/2024 Non-pressure chronic ulcer of other part of right lower leg limited to breakdown of skin (ICD-10 - L97.811) 04/13/2024 Non-pressure chronic ulcer of other part of right lower leg limited to breakdown of skin (ICD-10 - L97.811) 04/06/2024 Non-pressure chronic ulcer of other part of right lower leg limited to breakdown of skin (ICD-10 - L97.811) 03/30/2024 Non-pressure chronic ulcer of other part of right lower leg limited to breakdown of skin (ICD-10 - L97.811) 03/23/2024 Non-pressure chronic ulcer of other part of right lower leg limited to breakdown of skin (ICD-10 - L97.811) 03/16/2024 Non-pressure chronic ulcer of other part of right lower leg limited to breakdown of skin (ICD-10 - L97.811) 03/02/2024 Non-pressure chronic ulcer of other part of right lower leg limited to breakdown of skin (ICD-10 - L97.811) 02/24/2024 Non-pressure chronic ulcer of other part of right lower leg limited to breakdown of skin (ICD-10 - L97.811) 02/17/2024 Non-pressure chronic ulcer of other part of right lower leg limited to breakdown of skin (ICD-10 - L97.811) 02/10/2024 Non-pressure chronic ulcer of other part of right lower leg limited to breakdown of skin (ICD-10 - L97.811) 02/03/2024 Non-pressure chronic ulcer of other part of right lower leg limited to breakdown of skin (ICD-10 - L97.811) 01/27/2024 Disruption of external operation (surgical) wound, not elsewhere classified, subsequent encounter (ICD-10 - T81.31XD) 01/20/2024 Non-pressure chronic ulcer of other part of right lower leg limited to breakdown of skin (ICD-10 - L97.811) 01/13/2024 Non-pressure chronic ulcer of other part of right lower leg limited to breakdown of skin (ICD-10 - L97.811) 01/06/2024 Non-pressure chronic ulcer of other part of right lower leg limited to breakdown of skin (ICD-10 - L97.811) 12/30/2023 Disruption of external operation (surgical) wound, not elsewhere classified, subsequent encounter (ICD-10 - T81.31XD) 12/23/2023 Non-pressure chronic ulcer of other part of right foot with unspecified severity (ICD-10 - L97.519) 12/16/2023 Non-pressure chronic ulcer of other part of right foot with unspecified severity (ICD-10 - L97.519) 11/11/2023 Encounter for surgical aftercare following surgery on the skin and subcutaneous tissue (ICD-10 - Z48.817) 12/09/2023 Encounter for surgical aftercare following surgery on the skin and subcutaneous tissue (ICD-10 - Z48.817) 12/09/2023 Unspecified open wound of abdominal wall, right lower quadrant without penetration into peritoneal cavity, subsequent encounter (ICD-10 - S31.103D) 11/11/2023 Unspecified open wound of abdominal wall, right lower quadrant without penetration into peritoneal cavity, subsequent encounter (ICD-10 - S31.103D) 12/16/2023 Encounter for surgical aftercare following surgery on the skin and subcutaneous tissue (ICD-10 - Z48.817) 12/23/2023 Encounter for surgical aftercare following surgery on the skin and subcutaneous tissue (ICD-10 - Z48.817) 12/30/2023 Encounter for surgical aftercare following surgery on the skin and subcutaneous tissue (ICD-10 - Z48.817) 01/06/2024 Disruption of external operation (surgical) wound, not elsewhere classified, subsequent encounter (ICD-10 - T81.31XD) 01/13/2024 Disruption of external operation (surgical) wound, not elsewhere classified, subsequent encounter (ICD-10 - T81.31XD) 01/20/2024 Disruption of external operation (surgical) wound, not elsewhere classified, subsequent encounter (ICD-10 - T81.31XD) 01/27/2024 Encounter for surgical aftercare following surgery on the skin and subcutaneous tissue (ICD-10 - Z48.817) 02/03/2024 Disruption of external operation (surgical) wound, not elsewhere classified, subsequent encounter (ICD-10 - T81.31XD) 02/10/2024 Disruption of external operation (surgical) wound, not elsewhere classified, subsequent encounter (ICD-10 - T81.31XD) 02/17/2024 Disruption of external operation (surgical) wound, not elsewhere classified, subsequent encounter (ICD-10 - T81.31XD) 02/24/2024 Disruption of external operation (surgical) wound, not elsewhere classified, subsequent encounter (ICD-10 - T81.31XD) 03/02/2024 Disruption of external operation (surgical) wound, not elsewhere classified, subsequent encounter (ICD-10 - T81.31XD) 03/16/2024 Disruption of external operation (surgical) wound, not elsewhere classified, subsequent encounter (ICD-10 - T81.31XD) 03/23/2024 Disruption of external operation (surgical) wound, not elsewhere classified, subsequent encounter (ICD-10 - T81.31XD) 03/30/2024 Disruption of external operation (surgical) wound, not elsewhere classified, subsequent encounter (ICD-10 - T81.31XD) 04/06/2024 Disruption of external operation (surgical) wound, not elsewhere classified, subsequent encounter (ICD-10 - T81.31XD) 04/13/2024 Disruption of external operation (surgical) wound, not elsewhere classified, subsequent encounter (ICD-10 - T81.31XD) 04/20/2024 Disruption of external operation (surgical) wound, not elsewhere classified, subsequent encounter (ICD-10 - T81.31XD) 04/27/2024 Disruption of external operation (surgical) wound, not elsewhere classified, subsequent encounter (ICD-10 - T81.31XD) 04/27/2024 Encounter for surgical aftercare following surgery on the skin and subcutaneous tissue (ICD-10 - Z48.817) 04/20/2024 Encounter for surgical aftercare following surgery on the skin and subcutaneous tissue (ICD-10 - Z48.817) 04/13/2024 Encounter for surgical aftercare following surgery on the skin and subcutaneous tissue (ICD-10 - Z48.817) 04/06/2024 Encounter for surgical aftercare following surgery on the skin and subcutaneous tissue (ICD-10 - Z48.817) 03/30/2024 Encounter for surgical aftercare following surgery on the skin and subcutaneous tissue (ICD-10 - Z48.817) 03/23/2024 Encounter for surgical aftercare following surgery on the skin and subcutaneous tissue (ICD-10 - Z48.817) 03/16/2024 Encounter for surgical aftercare following surgery on the skin and subcutaneous tissue (ICD-10 - Z48.817) 03/02/2024 Encounter for surgical aftercare following surgery on the skin and subcutaneous tissue (ICD-10 - Z48.817) 02/24/2024 Encounter for surgical aftercare following surgery on the skin and subcutaneous tissue (ICD-10 - Z48.817) 02/17/2024 Encounter for surgical aftercare following surgery on the skin and subcutaneous tissue (ICD-10 - Z48.817) 02/10/2024 Encounter for surgical aftercare following surgery on the skin and subcutaneous tissue (ICD-10 - Z48.817) 02/03/2024 Encounter for surgical aftercare following surgery on the skin and subcutaneous tissue (ICD-10 - Z48.817) 01/27/2024 Unspecified open wound of abdominal wall, right lower quadrant without penetration into peritoneal cavity, subsequent encounter (ICD-10 - S31.103D) 01/20/2024 Encounter for surgical aftercare following surgery on the skin and subcutaneous tissue (ICD-10 - Z48.817) 01/13/2024 Encounter for surgical aftercare following surgery on the skin and subcutaneous tissue (ICD-10 - Z48.817) 01/06/2024 Encounter for surgical aftercare following surgery on the skin and subcutaneous tissue (ICD-10 - Z48.817) 12/30/2023 Unspecified open wound of abdominal wall, right lower quadrant without penetration into peritoneal cavity, subsequent encounter (ICD-10 - S31.103D) 12/23/2023 Unspecified open wound of abdominal wall, right lower quadrant without penetration into peritoneal cavity, subsequent encounter (ICD-10 - S31.103D) 12/16/2023 Unspecified open wound of abdominal wall, right lower quadrant without penetration into peritoneal cavity, subsequent encounter (ICD-10 - S31.103D) 11/11/2023 Non-pressure chronic ulcer of other part of right lower leg limited to breakdown of skin (ICD-10 - L97.811) 12/09/2023 Non-pressure chronic ulcer of other part of right lower leg limited to breakdown of skin (ICD-10 - L97.811) 12/09/2023 Cellulitis of left lower leg (ICD-10 - L03.116) 12/16/2023 Non-pressure chronic ulcer of other part of right lower leg limited to breakdown of skin (ICD-10 - L97.811) 12/23/2023 Non-pressure chronic ulcer of other part of right lower leg limited to breakdown of skin (ICD-10 - L97.811) 01/06/2024 Unspecified open wound of abdominal wall, right lower quadrant without penetration into peritoneal cavity, subsequent encounter (ICD-10 - S31.103D) 12/30/2023 Cellulitis of left lower leg (ICD-10 - L03.116) 01/13/2024 Unspecified open wound of abdominal wall, right lower quadrant without penetration into peritoneal cavity, subsequent encounter (ICD-10 - S31.103D) 01/20/2024 Unspecified open wound of abdominal wall, right lower quadrant without penetration into peritoneal cavity, subsequent encounter (ICD-10 - S31.103D) 02/03/2024 Unspecified open wound of abdominal wall, right lower quadrant without penetration into peritoneal cavity, subsequent encounter (ICD-10 - S31.103D) 02/10/2024 Unspecified open wound of abdominal wall, right lower quadrant without penetration into peritoneal cavity, subsequent encounter (ICD-10 - S31.103D) 02/17/2024 Unspecified open wound of abdominal wall, right lower quadrant without penetration into peritoneal cavity, subsequent encounter (ICD-10 - S31.103D) 02/24/2024 Unspecified open wound of abdominal wall, right lower quadrant without penetration into peritoneal cavity, subsequent encounter (ICD-10 - S31.103D) 03/02/2024 Unspecified open wound of abdominal wall, right lower quadrant without penetration into peritoneal cavity, subsequent encounter (ICD-10 - S31.103D) 03/16/2024 Unspecified open wound of abdominal wall, right lower quadrant without penetration into peritoneal cavity, subsequent encounter (ICD-10 - S31.103D) 03/23/2024 Unspecified open wound of abdominal wall, right lower quadrant without penetration into peritoneal cavity, subsequent encounter (ICD-10 - S31.103D) 03/30/2024 Unspecified open wound of abdominal wall, right lower quadrant without penetration into peritoneal cavity, subsequent encounter (ICD-10 - S31.103D) 04/06/2024 Unspecified open wound of abdominal wall, right lower quadrant without penetration into peritoneal cavity, subsequent encounter (ICD-10 - S31.103D) 04/13/2024 Unspecified open wound of abdominal wall, right lower quadrant without penetration into peritoneal cavity, subsequent encounter (ICD-10 - S31.103D) 04/20/2024 Unspecified open wound of abdominal wall, right lower quadrant without penetration into peritoneal cavity, subsequent encounter (ICD-10 - S31.103D) 04/27/2024 Unspecified open wound of abdominal wall, right lower quadrant without penetration into peritoneal cavity, subsequent encounter (ICD-10 - S31.103D) 01/20/2024 Cellulitis of left lower leg (ICD-10 - L03.116) 01/13/2024 Cellulitis of left lower leg (ICD-10 - L03.116) 01/06/2024 Cellulitis of left lower leg (ICD-10 - L03.116) 12/23/2023 Cellulitis of left lower leg (ICD-10 - L03.116) 12/16/2023 Cellulitis of left lower leg (ICD-10 - L03.116) 11/11/2023 Mansi Guevara presents today for a follow up visit. She is doing well. Her wounds are stable, no signs of infectious process. On exam, vital signs stable, afebrile, non-ill appearing. I first examined the wounds on the abdomin. Wound bed has slough and devitalized tissue, there is epibole present. There is no purulence, no odor. I discussed the indication for debridement and chemical cautery and she was agreeable. I performed debridement of the ulcers as outlined and used silver nitrate to cauterize the epibole. I cleaned the wounds with saline and HFB was applied tot he wound bed, zinc to periwound secured with dsd. I than examined bilateral lower legs. She has pinpoint open wounds on BLE, dry scaly skin, no signs of infection. Triamcinolone was applied by nursing. She tolerated the procedure well. Paola will continue with current treatment. She will apply HFB to abdominal wounds every other day. Continue with Triamcinolone to the legs wounds daily. She will use compression stockings during waking hours and encouraged her to elevate her legs. Advised to refrain from swimming on vacation. Discussed signs of infection and when to report. She will return in 1 month for a follow up visit. I spent 25 minutes of direct and indirect care of this patient reviewing records, gathering H&P, evaluation, formulating plan, education and documentation IMarjan [employer]- examined, evaluated and treated the patient. Dr. Elizabeth Yoder was available for any question or concerns that I may have had. 12/09/2023 Other On exam, alert, cooperative with care. Overall her wounds are in various stages of the healing process. Her abdominal wounds appear improved with more epithelial tissue and less undermining. Her LLE appears acutely infected with periwound erythema, wound is larger today. BLE wounds have significant xerosis to the periwounds, some wound boarders are irregular and undefined. I performed gentle debridement to remove biofilm and xerosis to the wounds and surrounding tissue, and she tolerated the procedures well after applications of lidocaine. Anterior RLE wound is intact, appears potentially fluid filled. Skin prep was applied. I cleaned the wounds with wound cleanser and nursing applied Lac-Hydrin to the periwounds of her wounds and to the wounds on her BLE's and transfer ready HFB to the open ulcers on her abdomen and BLE's; she has been using fabric Band-Aids for her abdominal wounds which she reports is working well. Lastly tubi F were applied toes to below her knees on in AM and off @ HS. I recommended she and her perform dressing changes MWF with Lac-Hydrin to periwounds of her BLE's, R foot, triamcinolone to periwounds of LUQ and RLQ abdominal wounds; transfer ready HFB to the open wounds on abdomen fb DCDs, tubi rat culturist on in AM and off @ HS. Skin prep daily to anterior RLE wound site. I wrote her a Rx for 5 days of cephalexin with a plan to culture the LLE wound next week if not improved (declined doxycycline as it is rough on her GI tract). I also wrote for ammonium lactate to the periwounds of her BLE's in hopes this will help with xerosis. Discussed if periwounds are worse upon removal of dressings on Saturday, try a thin layer of Vaseline vs continuing ammonium lactate. We discussed a potential clotrimazole/beta methasone combo to her abdominal periwounds next week if periwounds are not improved with Band-Aids use. Elevation discussed and recommended. She will continue to follow hematology and dermatology and her surgeon for her abdominal wounds did not feel she needed a surgical follow-up. She will return for a follow-up in about one week when we will monitor her progress, calling with any questions or concerns prior. Patient, and nursing agree w plan of care. I Nohemi Iyer MSN, [facility]- examined, evaluated and treated the patient. Dr. Elizabeth Yoder was available for any question or concerns that I may have had. 12/16/2023 Other On exam, alert, cooperative with care. Overall her wounds are in various stages of the healing process but overall are improving. Her abdominal wounds appear improved with more epithelial tissue and less undermining. Her LLE wound no longer appears infected as she has completed the keflex. I performed gentle debridement to remove biofilm and xerosis to the wounds and surrounding tissue, and she tolerated the procedures well after applications of lidocaine. Anterior RLE wound is reopened but clean with granular tissue. I cleaned the wounds with wound cleanser and nursing applied Lac-Hydrin to the periwounds of her wounds and to the wounds on her BLE's and transfer ready HFB to the open ulcers on her abdomen and BLE's; she has been using fabric Band-Aids for her abdominal wounds which she reports is working well. Lastly tubi F were applied toes to below her knees on in AM and off @ HS. I recommended she and her perform dressing changes MWF with Lac-Hydrin to periwounds of her BLE's, R foot, triamcinolone to periwounds of LUQ and RLQ abdominal wounds; transfer ready HFB to the open wounds on abdomen fb DCDs, tubi rat culturist on in AM and off @ HS. Skin prep daily to anterior RLE wound site. Elevation discussed and recommended. She will continue to follow hematology and dermatology and her surgeon for her abdominal wounds did not feel she needed a surgical follow-up. She will return for a follow-up in about one week when we will monitor her progress, calling with any questions or concerns prior. Patient, and nursing agree w plan of care. I Nohemi Iyer MSN, [facility]- examined, evaluated and treated the patient. Dr. Elizabeth Yoder was available for any question or concerns that I may have had. 12/23/2023 Other On exam, alert, cooperative with care. Overall her wounds are in various stages of the healing process but overall are improving, all as detailed above. Her abdominal wounds appear improved with more epithelial tissue and less undermining. I performed gentle debridement to remove biofilm and xerosis to the wounds and surrounding tissue, and she tolerated the procedures well after applications of lidocaine. I cleaned the wounds with wound cleanser and nursing applied Lac-Hydrin to the periwounds of her wounds and to the wounds on her BLE's, triamcinolone to immediate periwound of LLE, Adaptic to BLE's and transfer ready HFB to the open ulcers on her abdomen and BLE's; she has been using fabric Band-Aids for her abdominal wounds which she reports is working well and brought today for us to apply. Lastly tubi F were applied toes to below her knees on in AM and off @ HS. I recommended she and her perform dressing changes MWF with Lac-Hydrin to periwounds of her BLE's adding triamcinolone to immediate periwound of LLE only on her BLE wounds, triamcinolone to periwounds of LUQ and RLQ abdominal wounds; Adaptic fb transfer ready HFB to the open wounds on abdomen fb DCDs, tubi rat culturist on in AM and off @ HS. Elevation discussed and recommended. She will continue to follow hematology and dermatology and her surgeon for her abdominal wounds did not feel she needed a surgical follow-up. She will return for a follow-up in about one week when we will monitor her progress, calling with any questions or concerns prior. Patient, and nursing agree w plan of care. I Nohemi ROACH, [facility]- examined, evaluated and treated the patient. Dr. Elizabeth Yoder was available for any question or concerns that I may have had. 12/30/2023 Other On exam, alert, cooperative with care. Overall her wounds are in various stages of the healing process but overall are improving, all as detailed above. Her abdominal wounds appear improved with more epithelial tissue and no more undermining. I performed gentle debridement to remove biofilm and xerosis to the wounds and surrounding tissue, and she tolerated the procedures well after applications of lidocaine. I cleaned the wounds with wound cleanser and nursing applied Lac-Hydrin to the periwound of her wounds and to the wounds on her BLE's, triamcinolone to immediate periwound of LLE, Adaptic to BLE's and transfer ready HFB to the open ulcers on her BLE's and Puracol to abdominal wounds; she has been using fabric Band-Aids for her abdominal wounds which she reports is working well and brought today for us to apply. Lastly tubi F were applied toes to below her knees on in AM and off @ HS. I recommended she and her perform dressing changes MWF with CeraVe mixed with triamcinolone to periwound of her LLE and abdominal wounds and Vaseline to periwound of RLE and R foot wounds, Adaptic fb transfer ready HFB to the open wounds on BLE's and Puracol Ag fb DCDs, tubi rat culturist on in AM and off @ HS. Elevation discussed and recommended. She will continue to follow hematology and dermatology and her surgeon for her abdominal wounds did not feel she needed a surgical follow-up. She will return for a follow-up in about one week when we will monitor her progress, calling with any questions or concerns prior. Patient, and nursing agree w plan of care. I Nohemi ROACH, [facility]- examined, evaluated and treated the patient. Dr. Elizabeth Yoder was available for any question or concerns that I may have had. 01/06/2024 Other On exam, alert, cooperative with care. Overall her wounds are in various stages of the healing process but overall are improving, all as detailed above. I performed gentle debridement to remove biofilm and xerosis to the wounds and surrounding tissue, and she tolerated the procedures well after applications of lidocaine. I cleaned the wounds with wound cleanser and nursing applied triamcinolone to the periwounds f/b Puracol to abdominal wounds and BLE wounds f.b DCDs, fabric bandaids to her abdominal wounds. Lastly tubi F were applied toes to below her knees with instructions to apply in AM and remove @ HS. I recommended she and her perform dressing changes Saturday and Saturday with CeraVe mixed with triamcinolone to periwound of all of her wounds, Puracol Ag fb DCDs, tubi rat culturist on in AM and off @ HS. Elevation discussed and recommended. She will continue to follow hematology and dermatology and her surgeon for her abdominal wounds did not feel she needed a surgical follow-up. She will return for a follow-up in about one week when we will monitor her progress, calling with any questions or concerns prior. Patient, and nursing agree w plan of care. I Nohemi Iyer MSN, [facility]- examined, evaluated and treated the patient. Dr. Elizabeth Yodre was available for any question or concerns that I may have had. 01/13/2024 Other On exam, alert, cooperative with care. Overall her wounds are in various stages of the healing process but overall are improving, all as detailed above. She reports the most discomfort to her LLE which has a cluster of multiple open areas. I performed gentle debridement to remove biofilm and xerosis to the wounds and surrounding tissue, and she tolerated the procedures well after applications of lidocaine. I cleaned the wounds with wound cleanser and nursing applied triamcinolone to the periwounds f/b Puracol to abdominal wounds and BLE wounds f.b DCDs, fabric bandaids to her abdominal wounds. Lastly tubigrip was applied toes to below her knees with instructions to apply in AM and remove @ HS. I recommended she and her perform dressing changes Saturday and Saturday with CeraVe mixed with triamcinolone to periwound of all of her wounds, Puracol Ag fb DCDs, tubi rat culturist on in AM and off @ HS. She has a wedding to go to this week and asked about light compression nylons for 1 day instead of tubigrip which is ok. Elevation discussed and recommended. She will continue to follow hematology and dermatology and her surgeon for her abdominal wounds did not feel she needed a surgical follow-up. She will return for a follow-up in one week when we will monitor her progress, calling with any questions or concerns prior. Patient, and nursing agree w plan of care. I Nohemi Iyer MSN, [facility]- examined, evaluated and treated the patient. Dr. Elizabeth Yoder was available for any question or concerns that I may have had. 01/20/2024 Other On exam, alert, cooperative with care. Overall her wounds are in various stages of the healing process but overall are improving, all as detailed above. Her abdominal wounds are almost healed and have pinpoint granular areas remaining. I performed gentle debridement to remove biofilm and xerosis to the wounds and surrounding tissue, and she tolerated the procedures well after applications of lidocaine. I cleaned the wounds with wound cleanser and nursing applied triamcinolone to the periwounds f/b Puracol to abdominal wounds and BLE wounds f.b DCDs, fabric bandaids to her abdominal wounds. Lastly tubigrip was applied toes to below her knees with instructions to apply in AM and remove @ HS. I recommended she and her perform dressing changes Saturday and Saturday with CeraVe mixed with triamcinolone to periwound of all of her wounds, Puracol Ag fb DCDs, tubi rat culturist on in AM and off @ HS. She has a wedding to go to this week and asked about light compression nylons for 1 day instead of tubigrip which is ok. Elevation discussed and recommended. She will continue to follow hematology and dermatology and her surgeon for her abdominal wounds did not feel she needed a surgical follow-up. She will return for a follow-up in one week when we will monitor her progress, calling with any questions or concerns prior. Patient, and nursing agree w plan of care. I Nohemi Iyer MSN, [facility] examined, evaluated and treated the patient. Dr. Elizabeth Yoder was available for any question or concerns that I may have had. 01/27/2024 Other On exam, alert, cooperative with care. Overall her wounds are in various stages of the healing process but overall are improving, all as detailed above. The xerosis to her periwounds and epithelial tissue is much improved iwth the cerave triamcinolone combination. Her abdominal wounds are almost healed and have pinpoint granular areas remaining. I performed gentle debridement to remove biofilm and xerosis to the wounds and surrounding tissue, and she tolerated the procedures well after applications of lidocaine. I cleaned the wounds with wound cleanser and nursing applied triamcinolone to the periwounds f/b Puracol to abdominal wounds and BLE wounds f.b DCDs, fabric bandaids to her abdominal wounds. Lastly tubigrip was applied toes to below her knees with instructions to apply in AM and remove @ HS. I recommended she and her perform dressing changes with CeraVe mixed with triamcinolone to periwound of all of her wounds, Puracol Ag or the like fb DCDs, tubi rat culturist on in AM and off @ HS. Elevation discussed and recommended. She will continue to follow hematology and dermatology and her surgeon for her abdominal wounds did not feel she needed a surgical follow-up. She will return for a follow-up in one week when we will monitor her progress, calling with any questions or concerns prior. Patient, and nursing agree w plan of care. I Nohemi Iyer MSN, [facility]- examined, evaluated and treated the patient. Dr. Elizabeth Yoder was available for any question or concerns that I may have had. 02/03/2024 Other On exam, alert, cooperative with care. Overall her wounds are in various stages of the healing process but overall are starting to appear more stagnant. The xerosis to her periwounds and epithelial tissue is much improved with the cerave triamcinolone combination. Her abdominal wounds are almost healed and have pinpoint granular areas remaining. I performed gentle debridement to remove biofilm and xerosis to the wounds and surrounding tissue, and she tolerated the procedures well after an application of lidocaine. I cleaned the wounds with wound cleanser and nursing applied triamcinolone to the periwounds f/b adaptic fb aquacel ag to abdominal wounds and BLE wounds f.b DCDs, fabric bandaids to her abdominal wounds. Lastly tubigrip was applied toes to below her knees with instructions to apply in AM and remove @ HS. I recommended she and her perform dressing changes Saturday and Saturday with CeraVe mixed with triamcinolone to periwound of all of her wounds, adaptic fb aquacel ag (do not substitute) fb DCDs, tubi rat culturist on in AM and off @ HS. Elevation discussed and recommended. She will continue to follow hematology and dermatology and her surgeon for her abdominal wounds did not feel she needed a surgical follow-up. She will return for a follow-up in one week when we will monitor her progress, calling with any questions or concerns prior. Patient, and nursing agree w plan of care. I Nohemi Iyer MSN, [facility]- examined, evaluated and treated the patient. Dr. Elizabeth Yoder was available for any question or concerns that I may have had. 02/10/2024 Other On exam, alert, cooperative with care. Overall her wounds are in various stages of the healing process and overall showing signs of improvement again with adaptic f/b aquacel ag (previously puracol/collagen ag). The xerosis to her periwounds and epithelial tissue is much improved with the cerave triamcinolone combination, almost resolved. Her abdominal wounds are almost healed and have pinpoint granular areas remaining. I performed gentle debridement to remove biofilm and xerosis to the wounds and surrounding tissue, and she tolerated the procedures well after an application of lidocaine. I cleaned the wounds with wound cleanser and nursing applied triamcinolone to the periwounds f/b adaptic fb aquacel ag to abdominal wounds and BLE wounds f.b DCDs, fabric bandaids to her abdominal wounds. Lastly tubigrip was applied toes to below her knees with instructions to apply in AM and remove @ HS. I recommended she and her perform dressing changes Saturday and Saturday with CeraVe mixed with triamcinolone to periwound of all of her wounds, adaptic fb aquacel ag (do not substitute) fb DCDs, tubi rat culturist on in AM and off @ HS. Elevation discussed and recommended. She will continue to follow hematology and dermatology and her surgeon for her abdominal wounds did not feel she needed a surgical follow-up. She will return for a follow-up in one week for a nurse visit and then in two weeks for a provider visit to monitor her progress, calling with any questions or concerns prior. Patient, and nursing agree w plan of care. I Nohemi Iyer MSN, [facility]- examined, evaluated and treated the patient. Dr. Elizabeth Yoder was available for any question or concerns that I may have had. 02/17/2024 Other Dressing change d as above, no concerns today 02/24/2024 Other On exam, alert, cooperative with care. Overall her wounds are in various stages of the healing process and overall showing signs of improvement. Her RLE is scabbed, adherent without drainage. LLE is improving and has epithelial islands after debridement. R lateral foot and abdominal wounds are both primairly epithelial with small granular pinpoint areas. The xerosis to the periwounds of her BLEs and R foot are essentially resolved while her abdominal periwound xerosis persists. There were no findings to indicate any acute underlying infectious processes to any of her wound sites; I performed debridement as detailed to her LLE to remove lifting deitalized tissue and the other wounds are nicely clean with epithelial and granular tissue and did not require debridement. I cleaned the wounds with wound cleanser and nursing applied triamcinolone mixed w cerave to the periwounds f/b adaptic fb aquacel ag to LLE and R foot f.b DCDs, left RLE LEAD MINER BLASTING and applied desitin to wounds on abdomen, leaving LEAD MINER BLASTING. Lastly tubigrip was applied toes to below her knees with instructions to apply in AM and remove @ HS. I recommended she and her perform dressing changes Saturday and Saturday with CeraVe mixed with triamcinolone to periwound of her LLE and R foot wounds, adaptic fb aquacel ag (do not substitute) fb DCDs, tubi rat culturist on in AM and off @ HS. Leave RLE LEAD MINER BLASTING. Cerave mixed w triamcinolone to abdomen, desitin or zinc paste the like to abdominal wounds, leaving SHEKHAR, applying BID. Elevation discussed and recommended. She will continue to follow hematology and dermatology and her surgeon for her abdominal wounds did not feel she needed a surgical follow-up. She will return for a follow-up in one week to monitor her progress, calling with any questions or concerns prior. Patient, and nursing agree w plan of care. I Nohemi Iyer MSN, [facility]- examined, evaluated and treated the patient. Dr. Elizabeth Yoder was available for any question or concerns that I may have had. 03/02/2024 Other On exam, alert, cooperative with care. Overall her wounds are improving. Her RLE remains scabbed, adherent without drainage. LLE is improving and has epithelial islands after debridement. R lateral foot and abdominal wounds are both primairly epithelial with small granular pinpoint areas. The xerosis to the periwounds of her BLEs and R foot are essentially resolved and abominal periwound xerosis is much improved. There were no findings to indicate any acute underlying infectious processes to any of her wound sites; I performed debridement as detailed to her LLE to remove lifting deitalized tissue and the other wounds are nicely clean with epithelial and granular tissue and did not require debridement. I cleaned the wounds with wound cleanser and nursing applied triamcinolone mixed w cerave to the periwounds f/b adaptic fb aquacel ag to LLEf.b DCD, left RLE and R dorsal foot LEAD MINER BLASTING and applied desitin to wounds on abdomen and R dorsal foot, leaving SHEKHAR. Lastly tubigrip was applied toes to below her knees with instructions to apply in AM and remove @ HS. I recommended she and her perform dressing changes Saturday and Saturday with CeraVe mixed with triamcinolone to periwound of her LLE wound, adaptic fb aquacel ag (do not substitute) fb DCDs, tubi rat culturist on in AM and off @ HS. Leave RLE LEAD MINER BLASTING. Cerave mixed w triamcinolone to abdomen, desitin or zinc paste the like to abdominal wounds and R foot wound, leaving SHEKHAR, applying BID. Elevation discussed and recommended. She will continue to follow hematology and dermatology and her surgeon for her abdominal wounds did not feel she needed a surgical follow-up. She will return for a follow-up in two weeks to monitor her progress, calling with any questions or concerns prior. Patient, and nursing agree w plan of care. I Nohemi Iyer MSN, [facility]- examined, evaluated and treated the patient. Dr. Elizabeth Yoder was available for any question or concerns that I may have had. 03/16/2024 Other On exam, alert, cooperative with care. Overall her wounds are improving. Her RLE has eschar, adherent without drainage. LLE is improving and has epithelial islands after debridement, slow improvement continues. R lateral foot is measuring larger today and has more open pinpoint areas; debridement performed as detailed above. Abdominal wounds are both primairly epithelial with small adherent scabbed areas. There were no findings to indicate any acute underlying infectious processes to any of her wound sites; I performed debridement as detailed to her LLE and R lateral foot to remove lifting deitalized tissue and the other wounds are nicely clean with epithelial and granular tissue and did not require debridement. I cleaned the wounds with wound cleanser and nursing applied triamcinolone mixed w cerave to the periwounds f/b adaptic fb aquacel ag to LLE and R lateral foot f.b DCD, left RLE and applied cerave mixed with triamcinolone to wounds on abdomen, leaving SHEKHAR. Lastly tubigrip was applied toes to below her knees with instructions to apply in AM and remove @ HS. I recommended she and her perform dressing changes Saturday and Saturday with CeraVe mixed with triamcinolone to periwound of her LLE wound and R lateral foot wound, adaptic fb aquacel ag (do not substitute) fb DCDs, tubi rat culturist on in AM and off @ HS. Leave RLE SHEKHAR. Cerave mixed w triamcinolone to abdomen leaving LEAD MINER BLASTING, applying BID. Elevation discussed and recommended. She will continue to follow hematology and dermatology and her surgeon for her abdominal wounds did not feel she needed a surgical follow-up. She will return for a follow-up in one week to monitor her progress, calling with any questions or concerns prior. Patient, and nursing agree w plan of care. I Nohemi ROACH, [facility]- examined, evaluated and treated the patient. Dr. Elizabeth Yoder was available for any question or concerns that I may have had. Plan Of Treatment No Information Insurance Providers Payer Name Payer Address Payer Phone Subscriber Number Group Number Insured Name Patient Relationship to Insured Coverage Start Date Coverage End Date Medicare [address] [place], [place] [id number] [phone] [id number] LexiePaola patiño Self - patient is the insured [address] [place] [address] ([facility]) [address] [place], [place] [phone] [id number] [phone] [id number] LexiePaola patiño Self - patient is the insured Medical (General) History Medical History History ICD Code Aortic heart murmur I35.8 Antiphospholipid syndrome D68.61 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
--- OUTSIDE RECORDS SUMMARY | 2024-10-12 10:58 | XMS_ITS | Clinical Summary ---
Author Organization [facility] Address [address] [place] [address] Care Team Providers Care Operator Electronic Warfare Name Role Phone Jaylen Bar MD Primary Care Provider [phone] Medications No known medications Active Problems No [...] 72 07/10/2023 9:47 AM EDT Temperature 36.2 C (97.2 F) 07/10/2023 9:47 AM EDT Respiratory Rate - - Oxygen Saturation 99% [...] 06/24/2020, Additional history exists Influenza Vaccine (#1) 2024 , 12/11/2021, 12/06/2020, Additional history exists RSV Adult [...] Group Subscriber ID Effective Dates Phone Address [facility] [id number] 2023-[facility] [address] [facility] [address] [place] [phone] [facility] Care Teams Operator Electronic Warfare Relationship Specialty Start Date End Date Jaylen Bar MD [address] [place] [address] PCP - General Family Medicine 05/16/23
== END ==
LOC: HO.SL 09:59
PROVIDERS: PCP Family Medicine; Visit Provider Psychiatry & Neurology Neurology
DX: R40.0 Somnolence (principal); R06.83 Snoring; G47.33 Obstructive sleep apnea (adult) (pediatric)
CPT/HCPCS: 95806

== ENCOUNTER → 2024-10-12 10:35 | Outpatient (BNV) | payer MEDICARE, SELFPAY | PROVIDERS: PCP Family Medicine; Visit Provider Psychiatry & Neurology Neurology | DX: G47.33 Obstructive sleep apnea (adult) (pediatric) (principal) | CPT/HCPCS: 95806 ==